=== PATIENT | male | born 1985 | race Caucasian/White ===

== ENCOUNTER 2018-05-11 19:30 | Emergency (ER) | payer SELFPAY ==
[2018-05-11] MEDS ORDERED: NACL 0.9% 1000 ML 1,000 ML IV ONE ×2 (19:57→21:05)
[2018-05-11] MEDS ORDERED: ZOFRAN ONE (19:58)
[2018-05-11] MEDS ORDERED: ZOFRAN IV ONE ×2 (20:07→21:05)
[2018-05-11 20:17] LABS: Basophils % (Auto) 0.4 % (0.0-1.8); Eosinophils # (Auto) 0.1 K/mm3 (0.0-0.4); Eosinophils % (Auto) 1.2 % (0.0-4.3); Hematocrit 41.5 % (35.5-45.6); Hemoglobin 13.8 gm/dl (11.8-15.2); Lymphocytes # (Auto) 2.1 K/mm3 (1.2-5.4); Lymphocytes % (Auto) 19.1 % (13.4-35.0); Mean Corpuscular HGB Conc 33 % (32-34); Mean Corpuscular Hemoglobin 30 pg (28-32); Mean Corpuscular Volume 89 fl (84-94); Monocytes # (Auto) 1.2 K/mm3 (0.0-0.8); Monocytes % (Auto) 10.9 % (0.0-7.3); Platelet Count 278 K/mm3 (140-440); Red Blood Count 4.64 M/mm3 (3.65-5.03); Red Cell Distribution Width 12.6 % (13.2-15.2)
--- NOTE | 2018-05-11 20:24 | Emergency Department Report ---
ED N/V/D HPI - General Chief complaint: Abdominal Pain Stated complaint: POSS FOOD POISON/ABD PAIN Time Seen by Provider: 05/11/18 20:23 Source: patient Mode of arrival: Stretcher Limitations: No Limitations - History of Present Illness Initial comments: Previously healthy 32-year-old man with 2-3 day history of repeated bouts of nausea and vomiting, but fairly little diarrhea, primary concern that he may have had food poisoning, reporting that he may have a bed care several days ago. He is concerned because 3 days ago he ate some carrots that looked moldy, had green discoloration on them, patent anyway, and shortly after began having abdominal discomfort, with bouts of nausea and vomiting, which have persisted over the succeeding 3 days. He's not had much in the way of any diarrhea. No fever chills or diaphoresis. He is in good general health, and has no prior history of gastrointestinal problems. Patient reports discomfort is quite significant, currently 10 out of 10, felt primarily in the epigastrium, as well as in the right upper quadrant, with some discomfort in the right upper back as well. He's not had much in the way of gas , belching, or flatus. Patient had no hematemesis, no melena, no cough or congestion, no chest pain. There is an appointment in the coming week with a primary care physician, for evaluation of elevated blood pressure, but has never had medication for this before. - Related Data Previous Rx's Medication Instructions Recorded Last Taken Type Bacitracin Zinc Oint 1 applicatio TP BID #1 tube 08/03/16 Unknown Rx Cephalexin [Keflex] 500 mg PO Q12HR #9 cap 08/03/16 Unknown Rx HYDROcodone/APAP 10-325 [[place] 1 each PO Q6HR PRN #20 tablet 05/12/18 Unknown Rx 10/325] Lisinopril [Prinivil] 5 mg PO DAILY #30 tablet 05/12/18 Unknown Rx Omeprazole 20 mg PO DAILY #30 tablet. 05/12/18 Unknown Rx Ondansetron [Zofran ODT TAB] 8 mg PO Q8HR PRN #10 tab.rapdis 05/12/18 Unknown Rx Allergies Allergy/AdvReac Type Severity Reaction Status Date / Time No Known Allergies Allergy Unverified 08/02/16 23:36 ED Review of Systems ROS: Stated complaint: POSS FOOD POISON/ABD PAIN Other details as noted in HPI Comment: All other systems reviewed and negative Constitutional: denies: chills, fever ENT: denies: throat pain Respiratory: no symptoms reported. denies: cough, orthopnea, shortness of breath Cardiovascular: denies: chest pain Endocrine: no symptoms reported Gastrointestinal: as per HPI, abdominal pain, nausea, vomiting. denies: diarrhea, hematemesis, melena, hematochezia Genitourinary: denies: urgency, dysuria Musculoskeletal: denies: back pain, joint swelling, arthralgia Skin: denies: rash, lesions Neurological: denies: headache, weakness, paresthesias Psychiatric: denies: anxiety, depression Hematological/Lymphatic: denies: easy bleeding, easy bruising ED Past Medical Hx - Past Medical History Previous Medical History?: No - Surgical History Past Surgical History?: No - Social History Smoking Status: Never Smoker Substance Use Type: None - Medications Home Medications: Home Medications Medication Instructions Recorded Confirmed Last Taken Type Bacitracin Zinc Oint 1 applicatio TP BID #1 tube 08/03/16 Unknown Rx Cephalexin [Keflex] 500 mg PO Q12HR #9 cap 08/03/16 Unknown Rx HYDROcodone/APAP 10-325 [[place] 1 each PO Q6HR PRN #20 tablet 05/12/18 Unknown Rx 10/325] Lisinopril [Prinivil] 5 mg PO DAILY #30 tablet 05/12/18 Unknown Rx Omeprazole 20 mg PO DAILY #30 tablet.dr 05/12/18 Unknown Rx Ondansetron [Zofran ODT TAB] 8 mg PO Q8HR PRN #10 tab.rapdis 05/12/18 Unknown Rx ED Physical Exam - General Limitations: No Limitations General appearance: alert, in distress (moderate abdominal discomfort, but resting fairly comfortably at time of examination) - Head Head exam: Present: atraumatic, normocephalic - Eye Eye exam: Present: PERRL, EOMI. Absent: scleral icterus, conjunctival injection - ENT ENT exam: Present: normal exam - Neck Neck exam: Present: normal inspection, full ROM. Absent: tenderness - Respiratory Respiratory exam: Present: normal lung sounds bilaterally - Cardiovascular Cardiovascular Exam: Present: regular rate, normal heart sounds. Absent: systolic murmur, diastolic murmur - GI/Abdominal GI/Abdominal exam: Present: tenderness (predominantly epigastrium, also right upper quadrant, no definite rebound), guarding (mild, predominantly right upper quadrant), normal bowel sounds. Absent: mass - Rectal Rectal exam: Present: deferred - Extremities Exam Extremities exam: Present: normal inspection, full ROM. Absent: tenderness - Back Exam Back exam: Present: normal inspection. Absent: tenderness, CVA tenderness (R), CVA tenderness (L), muscle spasm, vertebral tenderness - Neurological Exam Neurological exam: Present: alert, oriented X3, CN II-XII intact. Absent: motor sensory deficit - Psychiatric Psychiatric exam: Present: normal affect, normal mood - Skin Skin exam: Present: warm, dry, intact. Absent: rash, petechiae, abrasion ED Course Vital Signs 05/11/18 05/11/18 05/11/18 19:38 19:45 19:50 Temperature 37.1 C Pulse Rate 74 97 H 91 H Respiratory 22 17 17 Rate Blood Pressure 172/107 172/107 O2 Sat by Pulse 100 100 99 Oximetry 05/11/18 05/11/18 05/11/18 20:00 20:15 20:30 Temperature Pulse Rate 72 63 69 Respiratory 25 H 28 H 19 Rate Blood Pressure 163/121 188/122 194/123 O2 Sat by Pulse 100 100 100 Oximetry 05/11/18 05/11/18 05/11/18 20:45 21:01 22:25 Temperature Pulse Rate 60 65 Respiratory 27 H 16 Rate Blood Pressure 184/100 150/79 184/100 O2 Sat by Pulse 100 100 96 Oximetry 05/11/18 05/11/18 05/11/18 22:30 22:45 23:00 Temperature Pulse Rate 95 H 96 H 98 H Respiratory 15 22 23 Rate Blood Pressure 169/107 162/107 178/110 O2 Sat by Pulse 95 96 98 Oximetry 05/11/18 05/11/18 05/11/18 23:15 23:30 23:45 Temperature Pulse Rate 100 H 91 H 77 Respiratory 21 22 15 Rate Blood Pressure 165/112 171/108 179/122 O2 Sat by Pulse 97 98 99 Oximetry - Reevaluation(s) Reevaluation #1: 05/12/18 00:03 Patient medicated for continuing discomfort, but still resting fairly comfortably after receiving second liter of IV fluids, and second round of morphine. ED Medical Decision Making - Lab Data Result diagrams: 05/11/18 20:02 05/11/18 20:02 - Radiology Data Radiology results: report reviewed (ultrasound right upper quadrant, shows gallstones, with mild cholecystitis, mild pericolic fluid, common bile duct 9.8 mm.) - Medical Decision Making Patient has symptoms of epigastric and right upper quadrant discomfort persisted for 3 days, with repeated nausea and vomiting, but is tolerating moderate amounts of fluids in small amounts on a regular basis. Findings are most suggestive of acute biliary colic, and right upper quadrant limited ultrasound examination of abdomen shows gallstones but only mild acute inflammation, mild pericolic fluid, CBD 9.8 mm. Patient's lab work is stable, lipase is normal, and he is stable for discharge home, but will need neurosurgical evaluation, and probably HIDA scan to assess her biliary function. He will be given continued release from work for the next several days, so that he can treat nausea and pain, advised to follow bland diet. Also, patient has had persistently elevated blood pressure, and despite treatment for pain, blood pressure at time of discharge still remains elevated at 153/104, and I believe patient has in addition, essential hypertension, and will write him an initial prescription of lisinopril, 5 mg daily, with recommendation to take blood pressure routinely at home, and keep a record of the trends in a notebook. He should follow with the primary care physician in one or 2 weeks, review records of blood pressure trends, and discuss adequacy of treatment. - Differential Diagnosis acute gastroenteritis, gastritis, cholecystitis Critical Care Time: No Critical care attestation.: If time is entered above; I have spent that time in minutes in the direct care of this critically ill patient, excluding procedure time. ED Disposition Clinical Impression: Biliary colic, Dehydration Nausea and vomiting Qualifiers: Vomiting type: unspecified Vomiting Intractability: non-intractable Qualified Code(s): R11.2 - Nausea with vomiting, unspecified Disposition: -01 TO HOME OR SELFCARE Is pt being admited?: No Does the pt Need Aspirin: No Condition: Stable Instructions: Dehydration (ED), Biliary Colic (ED) Additional Instructions: Follow with general surgeon in the next week or so, to have further evaluation for gallbladder disease, to assess how you're improving, and discussion about any need for removal of gallbladder. Prescriptions: HYDROcodone/APAP 10-325 [[place] 10/325] 1 each PO Q6HR PRN #20 tablet PRN Reason: Pain Lisinopril [Prinivil] 5 mg PO DAILY #30 tablet Omeprazole 20 mg PO DAILY #30 tablet. Ondansetron [Zofran ODT TAB] 8 mg PO Q8HR PRN #10 tab.rapdis PRN Reason: Nausea Referrals: PRIMARY CARE,MD [Primary Care Provider] - 3-5 Days HONORIO COLMENARES, LONG TERM ACUTE CARE REGISTERED NURSE [Advanced Practice Nurse] - 3-5 Days Forms: Work/School Release Form(ED) Time of Disposition: 00:10
[2018-05-11 20:33] LABS: Alanine Aminotransferase 66 units/L (7-56); Albumin 4.5 g/dL (3.9-5); BUN/Creatinine Ratio 14; Blood Urea Nitrogen 14 mg/dL (9-20); Calcium 9.8 mg/dL (8.4-10.2); Hemolysis Index 13; Lipase 13 units/L (13-60)
[2018-05-11 20:53] LABS: Bilirubin,Urine NEG (Negative); Blood,Urine NEG (Negative); Color,Urine Yellow (Yellow); Mucus,Urine FEW /HPF; Protein,Urine <15 mg/dL mg/dL (Negative); Urobilinogen,Urine < 2.0 mg/dL (<2.0); WBC,Urine < 1.0 /HPF (0.0-6.0)
[2018-05-11] MEDS ORDERED: MORPHINE IV ONE (21:05)
--- NOTE | 2018-05-11 23:14 | XRay Report ---
FINAL REPORT PROCEDURE: XR ABD SERIES W CXR 1V TECHNIQUE: Abdominal series complete, including supine and upright AP views of the abdomen and frontal chest. HISTORY: Abdominal pain, right upper quadrant. Nausea/vomiting 3 days. COMPARISON: No prior studies are available for comparison. FINDINGS: Heart: Normal. Mediastinum/Vessels: Normal. Lungs/Pleural space: Normal. Bowel gas pattern: Mildly reactive nonobstructive bowel gas pattern. Air in the rectum. Masses or calcifications: Pelvic phleboliths. Bony structures: No acute osseous abnormality. Other: No free intraperitoneal air. IMPRESSION: No radiographic evidence of acute cardiopulmonary disease. Mildly reactive nonobstructive bowel gas pattern.
--- NOTE | 2018-05-11 23:52 | Ultrasound Report ---
FINAL REPORT PROCEDURE: US ABDOMEN LIMITED TECHNIQUE: Real-time sonography was performed of the gallbladder with image documentation. CPT 79165 HISTORY: RUQ pain, vomiting, 3 days, no prior hx COMPARISON: No prior studies are available for comparison. FINDINGS: There are multiple stones identified within the gallbladder lumen. The gallbladder wall thickness is 3 millimeters. Common bile duct is dilated at 9.3 millimeters. There is pain during examination. The portion of the liver imaged is normal. The portion of the right kidney imaged is normal. The pancreas is not well seen on this study. There is slight fluid around the gallbladder which may represent pericholecystic fluid.. IMPRESSION: Cholelithiasis with some signs of inflammation and acute cholecystitis. The common bile duct is dilated measuring 9.3 millimeters. There is minimal pericholecystic fluid.
[2018-05-12] MEDS ORDERED: MORPHINE IV ONE (00:11)
[2018-05-12] MEDS ORDERED: ZOFRAN IV ONE (00:11)
[2018-05-12 01:42] VITALS: BP 169/109
== END 2018-05-12 01:43 | disposition home or self-care (01) ==
LOC: ED 19:30
DX: K80.50 Calculus of bile duct without cholangitis or cholecystitis without obstruction (principal); E86.0 Dehydration
CPT/HCPCS: 36415; 74022; 76705; 80053; 81001; 83690; 85025; 96361; 96374; 96375; 96376; 99285; J2270; J2405; J7030

== ENCOUNTER 2019-03-28 10:57 | Emergency (ER) | payer SELFPAY ==
[2019-03-28] MEDS ORDERED: ZOFRAN IV ONE (11:20)
[2019-03-28] MEDS ORDERED: NACL 0.9% 1000 ML 1,000 ML IV ONE (11:22)
[2019-03-28 11:42] LABS: Basophils # (Auto) 0.1 K/mm3 (0.0-0.1); Basophils % (Auto) 0.5 % (0.0-1.8); Eosinophils % (Auto) 0.2 % (0.0-4.3); Hematocrit 38.3 % (35.5-45.6); Hemoglobin 12.8 gm/dl (11.8-15.2); Lymphocytes # (Auto) 1.6 K/mm3 (1.2-5.4); Lymphocytes % (Auto) 15.1 % (13.4-35.0); Mean Corpuscular HGB Conc 34 % (32-34); Mean Corpuscular Volume 92 fl (84-94); Monocytes % (Auto) 9.2 % (0.0-7.3); Platelet Count 287 K/mm3 (140-440); Red Blood Count 4.17 M/mm3 (3.65-5.03); Red Cell Distribution Width 13.6 % (13.2-15.2)
[2019-03-28 11:51] LABS: Alanine Aminotransferase 12 units/L (7-56); Albumin 4.7 g/dL (3.9-5); BUN/Creatinine Ratio 10; Blood Urea Nitrogen 12 mg/dL (9-20); Calcium 9.5 mg/dL (8.4-10.2); Hemolysis Index 45
[2019-03-28] MEDS ORDERED: BENADRYL IV ONE (12:19)
[2019-03-28] MEDS ORDERED: MORPHINE IV ONE ×2 (12:19→14:47)
[2019-03-28] MEDS ORDERED: REGLAN IV ONE (12:20)
[2019-03-28 12:32] VITALS: BP 183/101
[2019-03-28 12:44] LABS: Bilirubin,Urine NEG (Negative); Blood,Urine NEG (Negative); Color,Urine Yellow (Yellow); Protein,Urine <15 mg/dL mg/dL (Negative); Urobilinogen,Urine < 2.0 mg/dL (<2.0); WBC,Urine < 1.0 /HPF (0.0-6.0)
--- NOTE | 2019-03-28 13:06 | Emergency Department Report ---
ED General Adult HPI - General Chief complaint: Abdominal Pain Stated complaint: CHEST PAIN Time Seen by Provider: 03/28/19 12:01 Source: EMS Mode of arrival: Ambulatory Limitations: No Limitations - History of Present Illness Initial comments: The patient presents to the ED with a Chief Complaint of abdominal pain and nausea/vomiting. Patient states the symptoms started last night and has not resolved. Patient has chest pain, some spelled, or headache. -: Sudden Severity scale (0 -10): 10 Quality: aching Consistency: constant Improves with: none Worsens with: none Associated Symptoms: nausea/vomiting Treatments Prior to Arrival: none - Related Data Previous Rx's Medication Instructions Recorded Last Taken Type Bacitracin Zinc Oint 1 applicatio TP BID #1 tube 08/03/16 Unknown Rx cephALEXin [Keflex] 500 mg PO Q12HR #9 cap 08/03/16 Unknown Rx HYDROcodone/APAP 10-325 [[place] 1 each PO Q6HR PRN #20 tablet 05/12/18 Unknown Rx 10/325] Lisinopril [Prinivil] 5 mg PO DAILY #30 tablet 05/12/18 Unknown Rx Omeprazole 20 mg PO DAILY #30 tablet. 05/12/18 Unknown Rx Ondansetron [Zofran ODT TAB] 8 mg PO Q8HR PRN #10 tab.rapdis 05/12/18 Unknown Rx Ondansetron [Zofran Odt] 4 mg PO Q4HR PRN #20 tab.rapdis 03/28/19 Unknown Rx Promethazine [Phenergan TAB] 25 mg PO Q6HR PRN #20 tab 03/28/19 Unknown Rx traMADol [Ultram] 50 mg PO Q6HR PRN #15 tablet 03/28/19 Unknown Rx Allergies Allergy/AdvReac Type Severity Reaction Status Date / Time No Known Allergies Allergy Unverified 08/02/16 23:36 ED Review of Systems ROS: Stated complaint: CHEST PAIN Other details as noted in HPI Comment: All other systems reviewed and negative Constitutional: denies: chills, fever Eyes: denies: eye pain, eye discharge, vision change ENT: denies: ear pain, throat pain Respiratory: denies: cough, shortness of breath, wheezing Cardiovascular: denies: chest pain, palpitations Endocrine: no symptoms reported Gastrointestinal: abdominal pain, nausea, vomiting. denies: diarrhea Genitourinary: denies: urgency, dysuria Musculoskeletal: denies: back pain, joint swelling, arthralgia Skin: denies: rash, lesions Neurological: denies: headache, weakness, paresthesias Psychiatric: denies: anxiety, depression Hematological/Lymphatic: denies: easy bleeding, easy bruising ED Past Medical Hx - Past Medical History Previous Medical History?: Yes Hx Hypertension: Yes Hx CVA: No Hx Heart Attack/AMI: No Hx Congestive Heart Failure: No Hx Diabetes: No Hx Deep Vein Thrombosis: No Hx Pulmonary Embolism: No Hx GERD: No Hx Liver Disease: No Hx Renal Disease: No Hx of Cancer: No Hx Sickle Cell Disease: No Hx Arthritis: No Hx Headaches / Migraines: No Hx Seizures: No Hx Kidney Stones: No Hx Psychiatric Treatment: Yes (cutter) Hx Asthma: No Hx COPD: No Hx Tuberculosis: No Hx Dementia: No Hx HIV: No Additional medical history: pt was informed in the past he needed his galdbladder removed - Surgical History Past Surgical History?: No Hx Coronary Stent: No Hx Open Heart Surgery: No Hx Pacemaker: No Hx Internal Defibrillator: No Hx Cholecystectomy: No Hx Appendectomy: No Hx Breast Surgery: No - Social History Smoking Status: Former Smoker Substance Use Type: Alcohol - Medications Home Medications: Home Medications Medication Instructions Recorded Confirmed Last Taken Type Bacitracin Zinc Oint 1 applicatio TP BID #1 tube 08/03/16 Unknown Rx cephALEXin [Keflex] 500 mg PO Q12HR #9 cap 08/03/16 Unknown Rx HYDROcodone/APAP 10-325 [[place] 1 each PO Q6HR PRN #20 tablet 05/12/18 Unknown Rx 10/325] Lisinopril [Prinivil] 5 mg PO DAILY #30 tablet 05/12/18 Unknown Rx Omeprazole 20 mg PO DAILY #30 tablet. 05/12/18 Unknown Rx Ondansetron [Zofran ODT TAB] 8 mg PO Q8HR PRN #10 tab.rapdis 05/12/18 Unknown Rx Ondansetron [Zofran Odt] 4 mg PO Q4HR PRN #20 tab.rapdis 03/28/19 Unknown Rx Promethazine [Phenergan TAB] 25 mg PO Q6HR PRN #20 tab 03/28/19 Unknown Rx traMADol [Ultram] 50 mg PO Q6HR PRN #15 tablet 03/28/19 Unknown Rx ED Physical Exam - General Limitations: No Limitations General appearance: alert, in no apparent distress - Head Head exam: Present: atraumatic, normocephalic - Eye Eye exam: Present: normal appearance, PERRL - ENT ENT exam: Present: mucous membranes dry - Neck Neck exam: Present: normal inspection - Respiratory Respiratory exam: Present: normal lung sounds bilaterally. Absent: respiratory distress - Cardiovascular Cardiovascular Exam: Present: regular rate, normal rhythm. Absent: systolic murmur, diastolic murmur, rubs, gallop - GI/Abdominal GI/Abdominal exam: Present: soft, normal bowel sounds. Absent: distended, tenderness - Rectal Rectal exam: Present: deferred - Extremities Exam Extremities exam: Present: normal inspection - Back Exam Back exam: Present: normal inspection - Neurological Exam Neurological exam: Present: alert, oriented X3, CN II-XII intact. Absent: motor sensory deficit - Psychiatric Psychiatric exam: Present: normal affect, normal mood - Skin Skin exam: Present: warm, dry, intact, normal color. Absent: rash ED Course Vital Signs 03/28/19 03/28/19 03/28/19 11:10 12:30 12:31 Temperature 98.6 F Pulse Rate 60 62 Respiratory 12 18 19 Rate Blood Pressure 168/105 Blood Pressure 168/105 183/101 [Right] O2 Sat by Pulse 99 98 Oximetry ED Medical Decision Making - Lab Data Result diagrams: 03/28/19 11:10 03/28/19 11:10 Lab Results 03/28/19 03/28/19 03/28/19 Range/Units 11:10 11:10 11:10 WBC 10.9 (4.5-11.0) K/mm3 RBC 4.17 (3.65-5.03) M/mm3 Hgb 12.8 (11.8-15.2) gm/dl Hct 38.3 (35.5-45.6) % MCV 92 (84-94) fl MCH 31 (28-32) pg MCHC 34 (32-34) % RDW 13.6 (13.2-15.2) % Plt Count 287 (140-440) K/mm3 Lymph % (Auto) 15.1 (13.4-35.0) % [place] % (Auto) 9.2 H (0.0-7.3) % Eos % (Auto) 0.2 (0.0-4.3) % Baso % (Auto) 0.5 (0.0-1.8) % Lymph # 1.6 (1.2-5.4) K/mm3 [place] # 1.0 H (0.0-0.8) K/mm3 Eos # 0.0 (0.0-0.4) K/mm3 Baso # 0.1 (0.0-0.1) K/mm3 Seg Neutrophils % 75.0 H (40.0-70.0) % Seg Neutrophils # 8.1 H (1.8-7.7) K/mm3 Sodium 142 (137-145) mmol/L Potassium 4.1 (3.6-5.0) mmol/L Chloride 102.6 (98-107) mmol/L Carbon Dioxide 23 (22-30) mmol/L Anion Gap 21 mmol/L BUN 12 (9-20) mg/dL Creatinine 1.2 (0.8-1.5) mg/dL Estimated GFR > 60 ml/min BUN/Creatinine Ratio 10 % Glucose 102 H (75-100) mg/dL Calcium 9.5 (8.4-10.2) mg/dL Total Bilirubin 0.30 (0.1-1.2) mg/dL AST 19 (5-40) units/L ALT 12 (7-56) units/L Alkaline Phosphatase 87 (35-129) units/L Troponin T < 0.010 (0.00-0.029) ng/mL Total Protein 7.4 (6.3-8.2) g/dL Albumin 4.7 (3.9-5) g/dL Albumin/Globulin Ratio 1.7 % Lipase 34 (13-60) units/L Urine Color (Yellow) Urine Turbidity (Clear) Urine pH (5.0-7.0) Ur Specific [place] (1.003-1.030) Urine Protein (Negative) mg/dL Urine Glucose (UA) (Negative) mg/dL Urine Ketones (Negative) mg/dL Urine Blood (Negative) Urine Nitrite (Negative) Urine Bilirubin (Negative) Urine Urobilinogen (<2.0) mg/dL Ur Leukocyte Esterase (Negative) Urine WBC (Auto) (0.0-6.0) /HPF Urine RBC (Auto) (0.0-6.0) /HPF U Epithel Cells (Auto) (0-13.0) /HPF // Range/Units Unknown WBC (4.5-11.0) K/mm3 RBC (3.65-5.03) M/mm3 Hgb (11.8-15.2) gm/dl Hct (35.5-45.6) % MCV (84-94) fl MCH (28-32) pg MCHC (32-34) % RDW (13.2-15.2) % Plt Count (140-440) K/mm3 Lymph % (Auto) (13.4-35.0) % [place] % (Auto) (0.0-7.3) % Eos % (Auto) (0.0-4.3) % Baso % (Auto) (0.0-1.8) % Lymph # (1.2-5.4) K/mm3 [place] # (0.0-0.8) K/mm3 Eos # (0.0-0.4) K/mm3 Baso # (0.0-0.1) K/mm3 Seg Neutrophils % (40.0-70.0) % Seg Neutrophils # (1.8-7.7) K/mm3 Sodium (137-145) mmol/L Potassium (3.6-5.0) mmol/L Chloride (98-107) mmol/L Carbon Dioxide (22-30) mmol/L Anion Gap mmol/L BUN (9-20) mg/dL Creatinine (0.8-1.5) mg/dL Estimated GFR ml/min BUN/Creatinine Ratio % Glucose (75-100) mg/dL Calcium (8.4-10.2) mg/dL Total Bilirubin (0.1-1.2) mg/dL AST (5-40) units/L ALT (7-56) units/L Alkaline Phosphatase (35-129) units/L Troponin T (0.00-0.029) ng/mL Total Protein (6.3-8.2) g/dL Albumin (3.9-5) g/dL Albumin/Globulin Ratio % Lipase (13-60) units/L Urine Color Yellow (Yellow) Urine Turbidity Clear (Clear) Urine pH 8.0 H (5.0-7.0) Ur Specific [place] 1.015 (1.003-1.030) Urine Protein <15 mg/dl (Negative) mg/dL Urine Glucose (UA) Neg (Negative) mg/dL Urine Ketones Neg (Negative) mg/dL Urine Blood Neg (Negative) Urine Nitrite Neg (Negative) Urine Bilirubin Neg (Negative) Urine Urobilinogen < 2.0 (<2.0) mg/dL Ur Leukocyte Esterase Neg (Negative) Urine WBC (Auto) < 1.0 (0.0-6.0) /HPF Urine RBC (Auto) 2.0 (0.0-6.0) /HPF U Epithel Cells (Auto) < 1.0 (0-13.0) /HPF - Radiology Data Radiology results: report reviewed - Medical Decision Making Discussed results with patient including CT findings Critical care attestation.: If time is entered above; I have spent that time in minutes in the direct care of this critically ill patient, excluding procedure time. ED Disposition Clinical Impression: Abdominal pain, Nausea & vomiting, Diverticulosis Disposition: TO HOME OR SELFCARE Is pt being admited?: No Does the pt Need Aspirin: No Condition: Stable Instructions: Acute Abdominal Pain (ED), Diverticulosis Diet (ED), Diverticulosis (ED), Acute Nausea and Vomiting (ED) Additional Instructions: return if worse Referrals: APRYL DOUGLAS MD [Primary Care Provider] - 3-5 Days
--- NOTE | 2019-03-28 14:51 | Cat Scan Report ---
CT scan of the abdomen and pelvis without IV contrast limits the history: Abdominal pain with nausea and vomiting. Findings a normal lung bases. No pleural pericardial effusion. Small sliding hiatal hernia. Normal gallbladder. Normal liver spleen and pancreas. Normal adrenals and kidney parenchyma and urinary bladder. No free intraperitoneal fluid or air. Normal appendix. No evidence of diverticulitis. Diverticulosis colon. Impression: Diverticulosis colon with stool in colon.
== END 2019-03-28 15:30 | disposition home or self-care (01) ==
LOC: ED 10:57
DX: K57.90 Diverticulosis of intestine, part unspecified, without perforation or abscess without bleeding (principal)
CPT/HCPCS: 36415; 74176; 80053; 81001; 83690; 84484; 85025; 96361; 96365; 96375; 96376; 99284; J1200; J2270; J2405; J2765; J7030

== ENCOUNTER 2019-07-26 23:15 | Inpatient (IN) | payer OTHER, SELFPAY ==
[2019-07-26] MEDS ORDERED: SODIUM CHLORIDE 0.9% 1000 ML 1,000 ML IV ONE (23:22)
[2019-07-26] MEDS ORDERED: ONDANSETRON 4 MG/2 ML INJ IV ONE (23:22)
[2019-07-26] MEDS ORDERED: MORPHINE 4 MG/1 ML INJ IV ONE (23:23)
[2019-07-26] MEDS ORDERED: HYDROmorphone 1 MG/1 ML INJ IV ONE (23:24)
[2019-07-26 23:52] LABS: Basophils % (Auto) 0.2 % (0.0-1.8); Hematocrit 41.4 % (35.5-45.6); Hemoglobin 13.7 gm/dl (11.8-15.2); Lymphocytes % (Auto) 8.4 % (13.4-35.0); Mean Corpuscular HGB Conc 33 % (32-34); Mean Corpuscular Volume 90 fl (84-94); Monocytes # (Auto) 1.2 K/mm3 (0.0-0.8); Monocytes % (Auto) 9.8 % (0.0-7.3); Platelet Count 230 K/mm3 (140-440); Red Blood Count 4.59 M/mm3 (3.65-5.03); Red Cell Distribution Width 14.3 % (13.2-15.2)
[2019-07-27 00:39] LABS: Alanine Aminotransferase 143 units/L (7-56); Albumin 4.5 g/dL (3.9-5); BUN/Creatinine Ratio 15; Bilirubin,Direct 0.7 mg/dL (0-0.2); Blood Urea Nitrogen 17 mg/dL (9-20); Hemolysis Index 5
[2019-07-27] MEDS ORDERED: HYDROmorphone 1 MG/1 ML INJ IV ONE (00:57)
--- NOTE | 2019-07-27 01:04 | Emergency Department Report ---
ED Abdominal Pain HPI - General Chief Complaint: Abdominal Pain Stated Complaint: ABD PAIN Time Seen by Provider: 07/26/19 23:22 Source: patient, family, EMS Mode of arrival: Ambulatory Limitations: Other - History of Present Illness Initial Comments: Mr. Martin is a 33-year-old male with history of alcohol abuse who presents with severe central pain radiating to the back. He was then his normal state of health until sudden onset of severe sharp pain which began around 9:00 her mother noted that he ate a burrito and [place] food. Positive nausea. No vomiting. No diarrhea. No fever. Mother states that he is unemployed due to his alcohol abuse. She moved from [place] to [place] in order to care for him. He was previously homeless. MD Complaint: abdominal pain -: Sudden, hour(s) (3) Location: diffuse Radiation: back Severity: severe Severity scale (0 -10): 10 Quality: sharp Consistency: constant Improves With: nothing Worsens With: eating Context: other (pain began shortly after eating [place] food) Associated Symptoms: nausea - Related Data Previous Rx's Medication Instructions Recorded Last Taken Type Bacitracin Zinc Oint 1 applicatio TP BID #1 tube 08/03/16 Unknown Rx cephALEXin [Keflex] 500 mg PO Q12HR #9 cap 08/03/16 Unknown Rx HYDROcodone/APAP 10-325 [[place] 1 each PO Q6HR PRN #20 tablet 05/12/18 Unknown Rx 10/325] Lisinopril [Prinivil] 5 mg PO DAILY #30 tablet 05/12/18 Unknown Rx Omeprazole 20 mg PO DAILY #30 tablet. 05/12/18 Unknown Rx Ondansetron [Zofran ODT TAB] 8 mg PO Q8HR PRN #10 tab.cheng 05/12/18 Unknown Rx Ondansetron [Zofran Odt] 4 mg PO Q4HR PRN #20 tab.tomasdis 03/28/19 Unknown Rx Promethazine [Phenergan TAB] 25 mg PO Q6HR PRN #20 tab 03/28/19 Unknown Rx traMADol [Ultram] 50 mg PO Q6HR PRN #15 tablet 03/28/19 Unknown Rx Allergies Allergy/AdvReac Type Severity Reaction Status Date / Time No Known Allergies Allergy Unverified 08/02/16 23:36 ED Review of Systems ROS: Stated complaint: ABD PAIN Other details as noted in HPI Comment: All other systems reviewed and negative Constitutional: denies: fever, malaise ED Past Medical Hx - Past Medical History Previous Medical History?: Yes Hx Hypertension: Yes Hx CVA: No Hx Heart Attack/AMI: No Hx Congestive Heart Failure: No Hx Diabetes: No Hx Deep Vein Thrombosis: No Hx Pulmonary Embolism: No Hx GERD: No Hx Liver Disease: No Hx Renal Disease: No Hx Sickle Cell Disease: No Hx Arthritis: No Hx Headaches / Migraines: No Hx Seizures: No Hx Kidney Stones: No Hx Psychiatric Treatment: Yes (cutter) Hx Asthma: No Hx COPD: No Hx Tuberculosis: No Hx Dementia: No Hx HIV: No Additional medical history: pt was informed in the past he needed his galdbladder removed - Surgical History Past Surgical History?: No Hx Coronary Stent: No Hx Open Heart Surgery: No Hx Pacemaker: No Hx Internal Defibrillator: No Hx Cholecystectomy: No Hx Appendectomy: No Hx Breast Surgery: No - Social History Smoking Status: Current Every Day Smoker Substance Use Type: Alcohol, Marijuana - Medications Home Medications: Home Medications Medication Instructions Recorded Confirmed Last Taken Type Bacitracin Zinc Oint 1 applicatio TP BID #1 tube 08/03/16 Unknown Rx cephALEXin [Keflex] 500 mg PO Q12HR #9 cap 08/03/16 Unknown Rx HYDROcodone/APAP 10-325 [[place] 1 each PO Q6HR PRN #20 tablet 05/12/18 Unknown Rx 10/325] Lisinopril [Prinivil] 5 mg PO DAILY #30 tablet 05/12/18 Unknown Rx Omeprazole 20 mg PO DAILY #30 tablet. 05/12/18 Unknown Rx Ondansetron [Zofran ODT TAB] 8 mg PO Q8HR PRN #10 tab.rapdis 05/12/18 Unknown Rx Ondansetron [Zofran Odt] 4 mg PO Q4HR PRN #20 tab.rapdis 03/28/19 Unknown Rx Promethazine [Phenergan TAB] 25 mg PO Q6HR PRN #20 tab 03/28/19 Unknown Rx traMADol [Ultram] 50 mg PO Q6HR PRN #15 tablet 03/28/19 Unknown Rx ED Physical Exam - General Limitations: Other General appearance: alert, in distress (yelling in severe pain,unable to keep still due to severe pain) - Head Head exam: Present: atraumatic, normocephalic - Eye Eye exam: Present: normal appearance - ENT ENT exam: Present: mucous membranes moist - Neck Neck exam: Present: normal inspection, full ROM - Respiratory Respiratory exam: Present: normal lung sounds bilaterally. Absent: respiratory distress, wheezes - Cardiovascular Cardiovascular Exam: Present: regular rate, normal rhythm, normal heart sounds. Absent: systolic murmur, diastolic murmur, rubs, gallop - GI/Abdominal GI/Abdominal exam: Present: soft, normal bowel sounds. Absent: distended, tenderness, guarding, rebound - Rectal Rectal exam: Present: deferred - Extremities Exam Extremities exam: Present: normal inspection - Back Exam Back exam: Present: normal inspection - Neurological Exam Neurological exam: Present: alert, oriented X3 - Psychiatric Psychiatric exam: Present: normal affect, normal mood - Skin Skin exam: Present: warm, dry, intact, normal color. Absent: rash ED Course Vital Signs 07/27/19 07/27/19 07/27/19 00:03 00:04 00:06 Pulse Rate 59 L 61 62 Respiratory 13 13 13 Rate Blood Pressure 182/102 O2 Sat by Pulse 100 Oximetry 07/27/19 07/27/19 07/27/19 00:08 00:10 00:11 Pulse Rate 68 64 Respiratory 12 19 20 Rate Blood Pressure 182/102 182/102 O2 Sat by Pulse 100 96 99 Oximetry 07/27/19 00:12 Pulse Rate 76 Respiratory 22 Rate Blood Pressure 182/102 O2 Sat by Pulse 100 Oximetry ED Medical Decision Making - Lab Data Result diagrams: 07/26/19 23:34 07/26/19 23:34 Laboratory Results - last 24 hr 07/26/19 07/26/19 23:34 23:34 WBC 11.8 H RBC 4.59 Hgb 13.7 Hct 41.4 MCV 90 MCH 30 MCHC 33 RDW 14.3 Plt Count 230 Lymph % (Auto) 8.4 L Day % (Auto) 9.8 H Eos % (Auto) 0.0 Baso % (Auto) 0.2 Lymph # 1.0 L Day # 1.2 H Eos # 0.0 Baso # 0.0 Seg Neutrophils % 81.6 H Seg Neutrophils # 9.7 H Sodium 143 Potassium 3.4 L Chloride 101.4 Carbon Dioxide 22 Anion Gap 23 BUN 17 Creatinine 1.1 Estimated GFR > 60 BUN/Creatinine Ratio 15 Glucose 183 H Calcium 9.0 Total Bilirubin 1.60 H Direct Bilirubin 0.7 H Indirect Bilirubin 0.9 AST 256 H ALT 143 H Alkaline Phosphatase 107 Total Protein 6.7 Albumin 4.5 Albumin/Globulin Ratio 2.0 - Radiology Data Radiology results: report reviewed CT abdomen and pelvis according to radiology impression revealed acute pancreatitis with peripancreatic fluid - Medical Decision Making Mr. Martin is a 33 yo male with hx alcohol abuse with severe acute abdominal pain radiating to his back. W/U revealed elevated t bili and transaminases. Suspect alcoholic hepatitis. Dx: acute pancreatitis, hepatiis Admitted to hospitalist service for further treatment and evaluation Critical care attestation.: If time is entered above; I have spent that time in minutes in the direct care of this critically ill patient, excluding procedure time. ED Disposition Clinical Impression: Acute pancreatitis, Hepatitis, Alcohol abuse Disposition: OP ADMIT IP TO THIS HOSP Is pt being admited?: Yes Does the pt Need Aspirin: No Condition: Stable
--- NOTE | 2019-07-27 02:00 | Cat Scan Report ---
CT ABDOMEN AND PELVIS WITH CONTRAST INDICATION / CLINICAL INFORMATION: MAIN: severe abdominal pain radiating to back EGNE111/100ML. TECHNIQUE: Axial CT images were obtained through the abdomen and pelvis after 100 mL Omnipaque [address] scans at this location are performed using CT dose reduction for ALARA by means of automated exposure control. COMPARISON: Noncontrast CT dated 03/28/19 FINDINGS: LOWER CHEST: No significant abnormality. LIVER: No significant abnormality. GALLBLADDER: No significant abnormality. BILE DUCTS: No biliary ductal dilation or gallstones. PANCREAS: Pancreas is diffusely edematous. There is moderate peripancreatic inflammation and ill-defi yvonne fluid extending into the anterior and posterior peripancreatic spaces and into the pararenal spac es and right pericolic gutter. SPLEEN: No significant abnormality. ADRENALS: No significant abnormality. RIGHT KIDNEY and URETER: No significant abnormality. LEFT KIDNEY and URETER: No significant abnormality. STOMACH and SMALL BOWEL: No significant abnormality. COLON: Mild sigmoid diverticulosis without inflammation. APPENDIX: No significant abnormality. PERITONEUM: Small amount of free fluid in the abdomen and pelvis. No free air. No fluid collection. LYMPH NODES: No significant adenopathy. AORTA and ARTERIES: No significant abnormality. IVC and VEINS: No significant abnormality. URINARY BLADDER: No significant abnormality. REPRODUCTIVE ORGANS: No significant abnormality. ADDITIONAL FINDINGS: None. SKELETAL SYSTEM: No significant abnormality. IMPRESSION: 1. Acute pancreatitis with extensive peripancreatic ill-defined fluid. No discrete drainable fluid co llection. Signer Name: Bhavana Harris MD Signed: 07/27/2019 1:55 AM Workstation Name: [email or web address]
[2019-07-27] MEDS ORDERED: SODIUM CHLORIDE 0.9% 1000 ML 1,000 ML IV ONE (02:31)
[2019-07-27] MEDS ORDERED: METOCLOPRAMIDE 10 MG/2 ML INJ IV PRN (03:01)
--- NOTE | 2019-07-27 03:13 | History and Physical Report ---
History of Present Illness Date of examination: 07/27/19 History of present illness: 34-year-old man with history of hypertension comes emergency room with complaints of abdominal pain that started today. Pain is in the mid abdomen which she describes as a hurting pain, constant, intensity 7/10, radiating to the back, can't identify exacerbating factor, relieved weight pain medication given in the emergency room. Mom is at bedside state that he set him up left since of nausea vomiting eview Of Systems: Constitutional: no weight loss, fever, chills Ears, eyes, nose, mouth and throat: no nasal congestion, no nasal discharge, no sinus pressure, blurry vision, diplopia Neck: No neck pain or rigidity. Cardiovascular: No palpitations, chest pain Respiratory: No shortness of breath, cough Gastrointestinal: No hematochezia Genitourinary : no dysuria, frequency , hematuria Musculoskeletal: no muscle ache , joint pain Integumentary: no rash, no pruritis Neurological: no parathesias, focal weakness Endocrine: no cold or heat intolerance, no polyuria or polydipsia Hematologic/Lymphatic: no easy bruising, no easy bleeding, no gland swelling Allergic/Immunologic: no urticaria, no angioedema. PAST MEDICAL HISTORY:hypertension PAST SURGICAL HISTORY:None FAMILY HISTORY:hypertension, diabetes SOCIAL HISTORY:+obacco, no drugs, 12 beers a day Medications and Allergies Allergies Allergy/AdvReac Type Severity Reaction Status Date / Time No Known Allergies Allergy Unverified 08/02/16 23:36 Home Medications Medication Instructions Recorded Confirmed Last Taken Type Bacitracin Zinc Oint 1 applicatio TP BID #1 tube 08/03/16 07/29/19 Unknown Rx Lisinopril [Prinivil] 5 mg PO DAILY #30 tablet 05/12/18 07/29/19 Unknown Rx Amoxicillin/Potassium Clav 1 each PO BID #10 tablet 07/30/19 Unknown Rx [Augmentin 875-125 Tablet] Azithromycin [Zithromax Z-BERE] 0 mg PO DAILY #1 pack 07/30/19 Unknown Rx HYDROcodone/APAP 10-325 [[place] 1 each PO Q6HR PRN #20 tablet 07/30/19 Unknown Rx 10-325 mg TAB] Omeprazole 40 mg PO DAILY #30 capsule. 07/30/19 Unknown Rx Ondansetron [Zofran ODT TAB] 8 mg PO Q8HR PRN #20 tab.rapdis 07/30/19 Unknown Rx Polyethylene Glycol 3350 [Miralax 17 gm PO BID PRN #60 powd.pack 07/30/19 Unknown Rx 3350] Active Meds: Active Medications Acetaminophen (Tylenol) 650 mg PO Q4H PRN PRN Reason: Pain MILD(1-3)/Fever >100.5/URBINA Enoxaparin Sodium (Lovenox) 40 mg SUB-Q QDAY ABBI Sodium Chloride (Nacl 0.9% 1000 Ml) 1,000 mls @ 999 mls/hr IV BOLUS ONE Stop: 07/27/19 03:31 Sodium Chloride (Nacl 0.9% 1000 Ml) 1,000 mls @ 150 mls/hr IV DIRECT ABBI Metoclopramide HCl (Reglan) 10 mg IV Q6H PRN PRN Reason: Nausea And Vomiting Morphine Sulfate (Morphine) 2 mg IV Q4H PRN PRN Reason: Pain, Moderate (4-6) Ondansetron HCl (Zofran) 4 mg IV Q4H PRN PRN Reason: Nausea And Vomiting Sodium Chloride (Sodium Chloride Flush Syringe 10 Ml) 10 ml IV BID ABBI Sodium Chloride (Sodium Chloride Flush Syringe 10 Ml) 10 ml IV PRN PRN PRN Reason: LINE FLUSH Exam - Physical Exam Narrative exam: General Apperance: The patient sitting in bed no acute distress HEENT: Normocephalic, atraumatic. Pupils equally round and reactive to light, extraocular movement intact, and no sclericterus or JVD or thyromegaly or nodule. Neck supple, no carotid bruit, mucous membranes moist, no exudate or erythema Heart: S1-S2, regular is rhythm Lungs: Clear to auscultation bilaterally, breathing comfortable Abdomen: Positive bowel sounds, soft, tender in the epigastric area, nondi stended, no organomegaly Extremities: No edema cyanosis clubbing Skin: no rash, nodule, warm and dry Neuro:CN 2 -12 intact, motor/sensory intact, speech is fluent - Constitutional Vitals: Temp Pulse Resp BP Pulse Ox 76 22 182/102 100 07/27/19 00:12 07/27/19 00:12 07/27/19 00:12 07/27/19 00:12 Results - Labs CBC & Chem 7: 07/29/19 08:28 07/29/19 08:28 Labs: Abnormal lab results 07/26/19 07/26/19 Range/Units 23:34 23:34 WBC 11.8 H (4.5-11.0) K/mm3 Lymph % (Auto) 8.4 L (13.4-35.0) % Real % (Auto) 9.8 H (0.0-7.3) % Lymph # 1.0 L (1.2-5.4) K/mm3 Real # 1.2 H (0.0-0.8) K/mm3 Seg Neutrophils % 81.6 H (40.0-70.0) % Seg Neutrophils # 9.7 H (1.8-7.7) K/mm3 Potassium 3.4 L (3.6-5.0) mmol/L Glucose 183 H (75-100) mg/dL Total Bilirubin 1.60 H (0.1-1.2) mg/dL Direct Bilirubin 0.7 H (0-0.2) mg/dL AST 256 H (5-40) units/L ALT 143 H (7-56) units/L Lipase 1090 H (13-60) units/L - Imaging and Cardiology CT scan - abdomen: report reviewed CT scan - pelvis: report reviewed Assessment and Plan Assessment Acute pancreatitis with extensive peripancreatic fluid Attention uncontrolled Alcohol abuse Man Start IV fluid, IV morphine, bowel rest, consult GI Start Lopressor, IV hydralazineas needed for blood pressure control DVT prophylaxis, CIWA protocol, follow lipase
[2019-07-27] MEDS ORDERED: LORazepam 2 MG/ML VIAL IV PRN ×2 (03:14)
[2019-07-27] MEDS ORDERED: hydrALAZINE 20 MG/1 ML INJ IV PRN (03:14)
[2019-07-27] MEDS: METOPROLOL TARTRATE 25 MG TAB PO SCH ×3 (04:15→21:58)
[2019-07-27 04:27] LABS: Basophils % (Auto) 0.1 % (0.0-1.8); Hematocrit 42.1 % (35.5-45.6); Hemoglobin 13.9 gm/dl (11.8-15.2); Lymphocytes # (Auto) 0.7 K/mm3 (1.2-5.4); Lymphocytes % (Auto) 6.9 % (13.4-35.0); Mean Corpuscular HGB Conc 33 % (32-34); Mean Corpuscular Volume 91 fl (84-94); Monocytes # (Auto) 0.9 K/mm3 (0.0-0.8); Monocytes % (Auto) 9.2 % (0.0-7.3); Platelet Count 208 K/mm3 (140-440); Red Blood Count 4.63 M/mm3 (3.65-5.03); Red Cell Distribution Width 14.4 % (13.2-15.2)
[2019-07-27] MEDS: MORPHINE 2 MG/1 ML INJ IV PRN ×2 (04:31→08:50)
[2019-07-27] MEDS: SODIUM CHLORIDE 0.9% 1000 ML 1,000 ML IV SCH ×4 (04:31→21:58)
[2019-07-27 04:39] LABS: BUN/Creatinine Ratio 16; Blood Urea Nitrogen 16 mg/dL (9-20); Calcium 8.9 mg/dL (8.4-10.2); Hemolysis Index 23
[2019-07-27] MEDS: ONDANSETRON 4 MG/2 ML INJ IV PRN ×5 (06:19→23:27)
[2019-07-27] MEDS ORDERED: MORPHINE 2 MG/1 ML INJ IV ONE (07:30)
--- NOTE | 2019-07-27 10:32 | Gastroenterology Consultation ---
History of Present Illness - Reason for Consult Consult date: 07/27/19 pancreatitis Requesting physician: ROBYN YAÑEZ - History of Present Illness This is a 33 yo male with alcohol use admitted overnight for abdominal pain and pancreatitis. Patient reports having epigastric pain radiating to his back and sides starting yesterday associated with nausea/vomiting and chills. He denies any blood in the stool or melena. No family hx of pancreas problems or prior epi sode of pancreatitis. Last alcohol use about 3 days ago. No new medication taken. Medication list reviewed. Past History Past Medical History: hypertension Social history: other (weekly alcohol use) Family history: hypertension Medications and Allergies Allergies Allergy/AdvReac Type Severity Reaction Status Date / Time No Known Allergies Allergy Unverified 08/02/16 23:36 Home Medications Medication Instructions Recorded Confirmed Last Taken Type Bacitracin Zinc Oint 1 applicatio TP BID #1 tube 08/03/16 Unknown Rx cephALEXin [Keflex] 500 mg PO Q12HR #9 cap 08/03/16 Unknown Rx HYDROcodone/APAP 10-325 [[place] 1 each PO Q6HR PRN #20 tablet 05/12/18 Unknown Rx 10/325] Lisinopril [Prinivil] 5 mg PO DAILY #30 tablet 05/12/18 Unknown Rx Omeprazole 20 mg PO DAILY #30 tablet. 05/12/18 Unknown Rx Ondansetron [Zofran ODT TAB] 8 mg PO Q8HR PRN #10 tab.tomasdis 05/12/18 Unknown Rx Ondansetron [Zofran Odt] 4 mg PO Q4HR PRN #20 tab.rapdis 03/28/19 Unknown Rx Promethazine [Phenergan TAB] 25 mg PO Q6HR PRN #20 tab 03/28/19 Unknown Rx traMADol [Ultram] 50 mg PO Q6HR PRN #15 tablet 03/28/19 Unknown Rx Active Meds: Active Medications Acetaminophen (Tylenol) 650 mg PO Q4H PRN PRN Reason: Pain MILD(1-3)/Fever >100.5/URBINA Enoxaparin Sodium (Lovenox) 40 mg SUB-Q QDAY ABBI Hydralazine HCl (Apresoline) 5 mg IV Q6H PRN PRN Reason: Hypertension Hydromorphone HCl (Dilaudid) 1 mg IV Q4H PRN PRN Reason: Pain , Severe (7-10) Sodium Chloride (Nacl 0.9% 1000 Ml) 1,000 mls @ 200 mls/hr IV DIRECT [facility] Last Admin: 07/27/19 04:31 Dose: 150 mls/hr Documented by: Lorazepam (Ativan) 2 mg IV Q1HR PRN PRN Reason: CIWA-Ar 8-15 Lorazepam (Ativan) 4 mg IV Q1HR PRN PRN Reason: CIWA-Ar 16-25 Metoclopramide HCl (Reglan) 10 mg IV Q6H PRN PRN Reason: Nausea And Vomiting Metoprolol Tartrate (Lopressor) 25 mg PO BID [facility] Last Admin: 07/27/19 04:15 Dose: 25 mg Documented by: Ondansetron HCl (Zofran) 4 mg IV Q4H PRN PRN Reason: Nausea And Vomiting Last Admin: 07/27/19 06:19 Dose: 4 mg Documented by: Sodium Chloride (Sodium Chloride Flush Syringe 10 Ml) 10 ml IV BID [facility] Sodium Chloride (Sodium Chloride Flush Syringe 10 Ml) 10 ml IV PRN PRN PRN Reason: LINE FLUSH Last Admin: 07/27/19 06:20 Dose: 10 ml Documented by: Review of Systems - Review of Systems All systems: negative Constitutional: fever, chills, no weight loss, no weight gain Cardiovascular: no chest pain Respiratory: no cough, no shortness of breath Gastrointestinal: abdominal pain, nausea, vomiting, no constipation, no change in bowel habits, no hematemesis Neurological: weakness Exam - Constitutional Vital Signs: Temp Pulse Resp BP Pulse Ox 97.9 F 72 18 171/111 100 07/27/19 00:15 07/27/19 04:15 07/27/19 04:11 07/27/19 04:15 07/27/19 06:09 General appearance: no acute distress - EENT Eyes: EOM intact ENT: hearing intact - Neck Neck: supple - Respiratory Respiratory effort: normal - Cardiovascular Rhythm: regular Heart Sounds: Present: S1 & S2 - Gastrointestinal General gastrointestinal: Present: soft, tender, non-distended - Integumentary Integumentary: Present: clear, warm - Neurologic Neurological: alert and oriented x3 - Labs CBC & Chem 7: 07/27/19 04:03 07/27/19 04:03 Lab Results: Laboratory Results - last 24 hr 07/26/19 07/26/19 07/27/19 23:34 23:34 04:03 WBC 11.8 H 10.0 RBC 4.59 4.63 Hgb 13.7 13.9 Hct 41.4 42.1 MCV 90 91 MCH 30 30 MCHC 33 33 RDW 14.3 14.4 Plt Count 230 208 Lymph % (Auto) 8.4 L 6.9 L [place] % (Auto) 9.8 H 9.2 H Eos % (Auto) 0.0 0.0 Baso % (Auto) 0.2 0.1 Lymph # 1.0 L 0.7 L [place] # 1.2 H 0.9 H Eos # 0.0 0.0 Baso # 0.0 0.0 Seg Neutrophils % 81.6 H 83.8 H Seg Neutrophils # 9.7 H 8.4 H Sodium 143 Potassium 3.4 L Chloride 101.4 Carbon Dioxide 22 Anion Gap 23 BUN 17 Creatinine 1.1 Estimated GFR > 60 BUN/Creatinine Ratio 15 Glucose 183 H Calcium 9.0 Phosphorus Magnesium Total Bilirubin 1.60 H Direct Bilirubin 0.7 H Indirect Bilirubin 0.9 AST 256 H ALT 143 H Alkaline Phosphatase 107 Total Protein 6.7 Albumin 4.5 Albumin/Globulin Ratio 2.0 Lipase 1090 H 07/27/19 04:03 WBC RBC Hgb Hct MCV MCH MCHC RDW Plt Count Lymph % (Auto) [place] % (Auto) Eos % (Auto) Baso % (Auto) Lymph # [place] # Eos # Baso # Seg Neutrophils % Seg Neutrophils # Sodium 144 Potassium 4.6 D Chloride 105.2 Carbon Dioxide 24 Anion Gap 19 BUN 16 Creatinine 1.0 Estimated GFR > 60 BUN/Creatinine Ratio 16 Glucose 138 H Calcium 8.9 Phosphorus 4.60 H Magnesium 2.00 Total Bilirubin Direct Bilirubin Indirect Bilirubin AST ALT Alkaline Phosphatase Total Protein Albumin Albumin/Globulin Ratio Lipase 705 H - Imaging CT Scan: report reviewed Assessment and Plan # Acute pancreatitis: CT findings of acute pancreatitis. - etiology likely alcohol. Although LFTs are elevated but no signs of gallstone or biliary dilation on CT. US done this morning. - Lipase trending down. - wbc trending down to normal. - afebrile. Rec - cont with supportive care with pain control, IVF, and antiemetics prn. - NPO - will repeat CMP today. - will need to consider MRCP if LFTs persistently elevated and findings of gallstones on US. - will follow.
[2019-07-27] MEDS: HYDROmorphone 1 MG/1 ML INJ IV PRN ×4 (10:39→23:28)
[2019-07-27 11:31] LABS: INR 1.12 (0.87-1.13)
[2019-07-27 11:38] LABS: Albumin 3.9 g/dL (3.9-5); Bilirubin,Direct 0.2 mg/dL (0-0.2)
[2019-07-27] MEDS: ENOXAPARIN 40 MG/0.4 ML INJ SUB-Q SCH (11:51)
[2019-07-27 12:06] LABS: Hepatitis B Surface Antigen Non-Reactive (Negative); Hepatitis C Virus Antibody Non-Reactive (NonReactive)
--- NOTE | 2019-07-27 13:54 | Ultrasound Report ---
LIMITED RUQ ABDOMINAL ULTRASOUND INDICATION: pancreatitis, concern for gall stone, abdo pain. COMPARISON: CT abdomen pelvis dated 07/26/2019. FINDINGS: Pancreas: The pancreas is mildly edematous but no focal mass or pseudocyst.. Abdominal Aorta: No significant abnormality. IVC: No significant abnormality. Liver: The liver measures 13.5 cm in length. No significant abnormality. Normal hepatopedal blood fl ow in the main portal vein. Gallbladder: The gallbladder is contracted and contains shadowing gallstones.. Bile ducts: No significant abnormality. Common bile duct measures 11.8 mm. Right kidney: Normal size and contour. There is increased renal echotexture consistent with medical r enal disease. No hydronephrosis.. Free fluid: Small ascites. Additional Findings: None. IMPRESSION: Cholelithiasis. The common bile duct is mildly dilated up to 7.8 mm. No obvious choledocholithiasis. Edematous pancreas consistent with pancreatitis. Mild medical renal disease. Small ascites.. Signer Name: Ghanshyam Patel Jr, MD Signed: 07/27/2019 1:49 PM Workstation Name: [id number]
--- NOTE | 2019-07-27 20:01 | Progress Note ---
Assessment and Plan Assessment and plan: 33-year-old man who admits to alcohol abuse and binge drinking who presents with 2 days of severe abdominal pain. Etoh pancreatitis IVF, pain meds, antiemetics, supportive care Counseled on alcohol cessation Preventative health counseling performed for 17 minutes RUQ sono shows gallstones, no cholecystitis of choledocholithiasis History Interval history: Review of systems Constitutional: No fevers, no malaise, no joint pains CVS: No chest pain, no orthopnea, no pedal edema GI: Patient continues to complain of abdominal pain, anorexia and nausea Respiratory: No shortness of breath, no wheezing, no coughing Hospitalist Physical - Constitutional Vitals: Temp Pulse Resp BP Pulse Ox 99.2 F 95 H 18 169/115 99 07/27/19 19:37 07/27/19 19:37 07/27/19 19:37 07/27/19 19:37 07/27/19 19:37 General appearance: Present: severe distress - EENT Eyes: Present: PERRL ENT: hearing intact - Neck Neck: Present: supple - Respiratory Respiratory effort: normal Respiratory: bilateral: CTA - Cardiovascular Rhythm: regular Heart Sounds: Present: S1 & S2 - Extremities Extremities: no ischemia - Abdominal General gastrointestinal: soft - Integumentary Integumentary: Present: clear, warm - Psychiatric Psychiatric: appropriate mood/affect, intact judgment & insight - Neurologic Neurologic: CNII-XII intact, moves all extremities Results - Labs CBC & Chem 7: 07/27/19 04:03 07/27/19 04:03 Labs: Laboratory Last Values WBC 10.0 K/mm3 (4.5-11.0) 07/27/19 04:03 RBC 4.63 M/mm3 (3.65-5.03) 07/27/19 04:03 Hgb 13.9 gm/dl (11.8-15.2) 07/27/19 04:03 Hct 42.1 % (35.5-45.6) 07/27/19 04:03 MCV 91 fl (84-94) 07/27/19 04:03 MCH 30 pg (28-32) 07/27/19 04:03 MCHC 33 % (32-34) 07/27/19 04:03 RDW 14.4 % (13.2-15.2) 07/27/19 04:03 Plt Count 208 K/mm3 (140-440) 07/27/19 04:03 Lymph % (Auto) 6.9 % (13.4-35.0) L 07/27/19 04:03 [place] % (Auto) 9.2 % (0.0-7.3) H 07/27/19 04:03 Eos % (Auto) 0.0 % (0.0-4.3) 07/27/19 04:03 Baso % (Auto) 0.1 % (0.0-1.8) 07/27/19 04:03 Lymph # 0.7 K/mm3 (1.2-5.4) L 07/27/19 04:03 [place] # 0.9 K/mm3 (0.0-0.8) H 07/27/19 04:03 Eos # 0.0 K/mm3 (0.0-0.4) 07/27/19 04:03 Baso # 0.0 K/mm3 (0.0-0.1) 07/27/19 04:03 Seg Neutrophils % 83.8 % (40.0-70.0) H 07/27/19 04:03 Seg Neutrophils # 8.4 K/mm3 (1.8-7.7) H 07/27/19 04:03 PT 14.1 Sec. (12.2-14.9) 07/27/19 10:51 INR 1.12 (0.87-1.13) 07/27/19 10:51 Sodium 144 mmol/L (137-145) 07/27/19 04:03 Potassium 4.6 mmol/L (3.6-5.0) D 07/27/19 04:03 Chloride 105.2 mmol/L (98-107) 07/27/19 04:03 Carbon Dioxide 24 mmol/L (22-30) 07/27/19 04:03 Anion Gap 19 mmol/L 07/27/19 04:03 BUN 16 mg/dL (9-20) 07/27/19 04:03 Creatinine 1.0 mg/dL (0.8-1.5) 07/27/19 04:03 Estimated GFR > 60 ml/min 07/27/19 04:03 BUN/Creatinine Ratio 16 % 07/27/19 04:03 Glucose 138 mg/dL (75-100) H 07/27/19 04:03 Calcium 8.9 mg/dL (8.4-10.2) 07/27/19 04:03 Phosphorus 4.60 mg/dL (2.5-4.5) H 07/27/19 04:03 Magnesium 2.00 mg/dL (1.7-2.3) 07/27/19 04:03 Total Bilirubin 0.80 mg/dL (0.1-1.2) 07/27/19 10:51 Direct Bilirubin 0.2 mg/dL (0-0.2) 07/27/19 10:51 Indirect Bilirubin 0.6 mg/dL 07/27/19 10:51 AST 87 units/L (5-40) H 07/27/19 10:51 ALT 90 units/L (7-56) H 07/27/19 10:51 Alkaline Phosphatase 86 units/L (35-129) 07/27/19 10:51 Total Protein 6.3 g/dL (6.3-8.2) 07/27/19 10:51 Albumin 3.9 g/dL (3.9-5) 07/27/19 10:51 Albumin/Globulin Ratio 1.6 % 07/27/19 10:51 Lipase 705 units/L (13-60) H 07/27/19 04:03 Hepatitis A IgM Ab Non-reactive (NonReactive) 07/27/19 10:51 Hep Bs Antigen Non-reactive (Negative) 07/27/19 10:51 Hep B Core IgM Ab Non-reactive (NonReactive) 07/27/19 10:51 Hepatitis C Antibody Non-reactive (NonReactive) 07/27/19 10:51 Active Medications - Current Medications Current Medications: Generic Name Dose Route Start Last Admin Trade Name Freq PRN Reason Stop Dose Admin Acetaminophen 650 mg 07/27/19 03:01 Tylenol PO Q4H PRN Pain MILD(1-3)/Fever >100.5/URBINA Enoxaparin Sodium 40 mg 07/27/19 10:00 07/27/19 11:51 Lovenox SUB-Q 40 mg QDAY ABBI Administration Hydralazine HCl 5 mg 07/27/19 03:14 Apresoline IV Q6H PRN Hypertension Hydromorphone HCl 1 mg 07/27/19 10:30 07/27/19 19:38 Dilaudid IV 1 mg Q4H PRN Administration Pain , Severe (7-10) Sodium Chloride 1,000 mls @ 200 mls/hr 07/27/19 04:00 07/27/19 16:31 Nacl 0.9% 1000 Ml IV 200 mls/hr DIRECT ABBI Administration Lorazepam 2 mg 07/27/19 03:14 Ativan IV Q1HR PRN CIWA-Ar 8-15 Lorazepam 4 mg 07/27/19 03:14 Ativan IV Q1HR PRN CIWA-Ar 16-25 Metoclopramide HCl 10 mg 07/27/19 03:01 Reglan IV Q6H PRN Nausea And Vomiting Metoprolol Tartrate 25 mg 07/27/19 03:14 07/27/19 11:51 Lopressor PO 25 mg BID ABBI Administration Ondansetron HCl 4 mg 07/27/19 03:01 07/27/19 19:38 Zofran IV 4 mg Q4H PRN Administration Nausea And Vomiting Sodium Chloride 10 ml 07/27/19 10:00 07/27/19 11:52 Sodium Chloride Flush Syringe 10 Ml IV 10 ml BID ABBI Administration Sodium Chloride 10 ml 07/27/19 03:01 07/27/19 19:38 Sodium Chloride Flush Syringe 10 Ml IV 10 ml PRN PRN Administration LINE FLUSH
[2019-07-28] MEDS: SODIUM CHLORIDE 0.9% 1000 ML 1,000 ML IV SCH ×4 (06:22→20:42)
[2019-07-28] MEDS: ONDANSETRON 4 MG/2 ML INJ IV PRN ×3 (06:22→15:47)
[2019-07-28] MEDS: HYDROmorphone 1 MG/1 ML INJ IV PRN ×4 (06:22→20:51)
[2019-07-28] MEDS: ENOXAPARIN 40 MG/0.4 ML INJ SUB-Q SCH (09:21)
[2019-07-28] MEDS: METOPROLOL TARTRATE 25 MG TAB PO SCH ×2 (09:22→21:00)
[2019-07-28] MEDS ORDERED: HYDROcodone/ACETAMINOPHEN 10-325MG TAB PO PRN (10:37)
--- NOTE | 2019-07-28 10:37 | Progress Note ---
Assessment and Plan Assessment and plan: 33-year-old man who admits to alcohol abuse and binge drinking who presents with 2 days of severe abdominal pain. Etoh pancreatitis IVF, pain meds, antiemetics, supportive care ADAT Counseled on alcohol cessation Preventative health counseling performed for 17 minutes RUQ sono shows gallstones, no cholecystitis of choledocholithiasis History Interval history: Review of systems Constitutional: No fevers, no malaise, no joint pains CVS: No chest pain, no orthopnea, no pedal edema GI: Patient continues to complain of abdominal pain, anorexia and nausea Respiratory: No shortness of breath, no wheezing, no coughing Hospitalist Physical - Physical exam Narrative exam: General appearance: Present: mild distress - EENT Eyes: Present: PERRL ENT: hearing intact - Neck Neck: Present: supple - Respiratory Respiratory effort: normal Respiratory: bilateral: CTA - Cardiovascular Rhythm: regular Heart Sounds: Present: S1 & S2 - Extremities Extremities: no ischemia - Abdominal General gastrointestinal: soft - Integumentary Integumentary: Present: clear, warm - Psychiatric Psychiatric: appropriate mood/affect, intact judgment & insight - Neurologic Neurologic: CNII-XII intact, moves all extremities - Constitutional Vitals: Temp Pulse Resp BP Pulse Ox 99.5 F 96 H 18 165/97 94 07/28/19 05:23 07/28/19 09:22 07/28/19 06:52 07/28/19 09:22 07/28/19 05:23 Results - Labs CBC & Chem 7: 07/27/19 04:03 07/27/19 04:03 Labs: Laboratory Last Values WBC 10.0 K/mm3 (4.5-11.0) 07/27/19 04:03 RBC 4.63 M/mm3 (3.65-5.03) 07/27/19 04:03 Hgb 13.9 gm/dl (11.8-15.2) 07/27/19 04:03 Hct 42.1 % (35.5-45.6) 07/27/19 04:03 MCV 91 fl (84-94) 07/27/19 04:03 MCH 30 pg (28-32) 07/27/19 04:03 MCHC 33 % (32-34) 07/27/19 04:03 RDW 14.4 % (13.2-15.2) 07/27/19 04:03 Plt Count 208 K/mm3 (140-440) 07/27/19 04:03 Lymph % (Auto) 6.9 % (13.4-35.0) L 07/27/19 04:03 [place] % (Auto) 9.2 % (0.0-7.3) H 07/27/19 04:03 Eos % (Auto) 0.0 % (0.0-4.3) 07/27/19 04:03 Baso % (Auto) 0.1 % (0.0-1.8) 07/27/19 04:03 Lymph # 0.7 K/mm3 (1.2-5.4) L 07/27/19 04:03 [place] # 0.9 K/mm3 (0.0-0.8) H 07/27/19 04:03 Eos # 0.0 K/mm3 (0.0-0.4) 07/27/19 04:03 Baso # 0.0 K/mm3 (0.0-0.1) 07/27/19 04:03 Seg Neutrophils % 83.8 % (40.0-70.0) H 07/27/19 04:03 Seg Neutrophils # 8.4 K/mm3 (1.8-7.7) H 07/27/19 04:03 PT 14.1 Sec. (12.2-14.9) 07/27/19 10:51 INR 1.12 (0.87-1.13) 07/27/19 10:51 Sodium 144 mmol/L (137-145) 07/27/19 04:03 Potassium 4.6 mmol/L (3.6-5.0) D 07/27/19 04:03 Chloride 105.2 mmol/L (98-107) 07/27/19 04:03 Carbon Dioxide 24 mmol/L (22-30) 07/27/19 04:03 Anion Gap 19 mmol/L 07/27/19 04:03 BUN 16 mg/dL (9-20) 07/27/19 04:03 Creatinine 1.0 mg/dL (0.8-1.5) 07/27/19 04:03 Estimated GFR > 60 ml/min 07/27/19 04:03 BUN/Creatinine Ratio 16 % 07/27/19 04:03 Glucose 138 mg/dL (75-100) H 07/27/19 04:03 Calcium 8.9 mg/dL (8.4-10.2) 07/27/19 04:03 Phosphorus 4.60 mg/dL (2.5-4.5) H 07/27/19 04:03 Magnesium 2.00 mg/dL (1.7-2.3) 07/27/19 04:03 Total Bilirubin 0.80 mg/dL (0.1-1.2) 07/27/19 10:51 Direct Bilirubin 0.2 mg/dL (0-0.2) 07/27/19 10:51 Indirect Bilirubin 0.6 mg/dL 07/27/19 10:51 AST 87 units/L (5-40) H 07/27/19 10:51 ALT 90 units/L (7-56) H 07/27/19 10:51 Alkaline Phosphatase 86 units/L (35-129) 07/27/19 10:51 Total Protein 6.3 g/dL (6.3-8.2) 07/27/19 10:51 Albumin 3.9 g/dL (3.9-5) 07/27/19 10:51 Albumin/Globulin Ratio 1.6 % 07/27/19 10:51 Lipase 705 units/L (13-60) H 07/27/19 04:03 Hepatitis A IgM Ab Non-reactive (NonReactive) 07/27/19 10:51 Hep Bs Antigen Non-reactive (Negative) 07/27/19 10:51 Hep B Core IgM Ab Non-reactive (NonReactive) 07/27/19 10:51 Hepatitis C Antibody Non-reactive (NonReactive) 07/27/19 10:51 Active Medications - Current Medications Current Medications: Generic Name Dose Route Start Last Admin Trade Name Freq PRN Reason Stop Dose Admin Acetaminophen 650 mg 07/27/19 03:01 Tylenol PO Q4H PRN Pain MILD(1-3)/Fever >100.5/URBINA Enoxaparin Sodium 40 mg 07/27/19 10:00 07/28/19 09:21 Lovenox SUB-Q 40 mg QDAY ABBI Administration Hydralazine HCl 10 mg 07/28/19 10:36 Apresoline IV Q4HR PRN BP >160/100 Hydromorphone HCl 1 mg 07/27/19 10:30 07/28/19 06:22 Dilaudid IV 1 mg Q4H PRN Administration Pain , Severe (7-10) Sodium Chloride 1,000 mls @ 200 mls/hr 07/27/19 04:00 07/28/19 06:22 Nacl 0.9% 1000 Ml IV 200 mls/hr DIRECT ABBI Administration Lorazepam 2 mg 07/27/19 03:14 Ativan IV Q1HR PRN CIWA-Ar 8-15 Lorazepam 4 mg 07/27/19 03:14 Ativan IV Q1HR PRN CIWA-Ar 16-25 Metoclopramide HCl 10 mg 07/27/19 03:01 Reglan IV Q6H PRN Nausea And Vomiting Metoprolol Tartrate 25 mg 07/27/19 03:14 07/28/19 09:22 Lopressor PO 25 mg BID ABBI Administration Ondansetron HCl 4 mg 07/27/19 03:01 07/28/19 06:22 Zofran IV 4 mg Q4H PRN Administration Nausea And Vomiting Sodium Chloride 10 ml 07/27/19 10:00 07/28/19 09:23 Sodium Chloride Flush Syringe 10 Ml IV 10 ml BID ABBI Administration Sodium Chloride 10 ml 07/27/19 03:01 07/27/19 19:38 Sodium Chloride Flush Syringe 10 Ml IV 10 ml PRN PRN Administration LINE FLUSH
--- NOTE | 2019-07-28 13:36 | Gastroenterology Progress Note ---
Assessment and Plan 1. GI: pancreatitis w/ noted gallstones, probable gallstone pancreatitis - lipase improved, symptoms slowly improving - continue clear liquid diet, advance to soft in am - follow labs including CRP - continue MRCP based on progress - if tolerating soft diet in am ok to d/c from GI standpoint - will follow - Subjective Date of service: 07/28/19 Interval history: - reports still w/ some pain but overall improving Objective - Constitutional Vitals: Temp Pulse Resp BP Pulse Ox 99.4 F 94 H 20 162/103 98 07/28/19 12:53 07/28/19 12:53 07/28/19 12:53 07/28/19 12:53 07/28/19 12:53 General appearance: no acute distress - EENT Eyes: PERRL - Respiratory Respiratory: bilateral: CTA - Cardiovascular Rhythm: regular Heart Sounds: Present: S1 & S2 - Gastrointestinal General gastrointestinal: Present: soft, non-tender, non-distended - Labs CBC & Chem 7: 07/27/19 04:03 07/27/19 04:03
[2019-07-28] MEDS: hydrALAZINE 20 MG/1 ML INJ IV PRN ×2 (13:46→17:57)
[2019-07-28] MEDS: POLYETHYLENE GLYCOL 3350 17 GM POWDER PO PRN (13:52)
--- NOTE | 2019-07-28 23:58 | Event Note ---
patient Tachycardic, fever Panculture, start empiric IV Zosyn
[2019-07-29] MEDS: ACETAMINOPHEN 325 MG TAB PO PRN ×2 (00:03→17:56)
[2019-07-29] MEDS: PIPERACIL/TAZOBACTA 4.5/NS 100 4.5 GM/100 ML VIAL IV SCH ×4 (00:33→23:30)
[2019-07-29] MEDS: SODIUM CHLORIDE 0.9% 1000 ML 1,000 ML IV SCH ×5 (02:00→21:49)
[2019-07-29] MEDS: HYDROmorphone 1 MG/1 ML INJ IV PRN ×5 (02:16→21:43)
[2019-07-29 03:47] LABS: Bilirubin,Urine NEG (Negative); Blood,Urine MOD (Negative); Color,Urine Yellow (Yellow); Urobilinogen,Urine < 2.0 mg/dL (<2.0)
[2019-07-29] MEDS: hydrALAZINE 20 MG/1 ML INJ IV PRN ×2 (06:05→12:42)
--- NOTE | 2019-07-29 08:06 | XRay Report ---
CHEST 1 VIEW INDICATION / CLINICAL INFORMATION: fever. History pancreatitis COMPARISON: None available. FINDINGS: SUPPORT DEVICES: None. HEART / MEDIASTINUM: No significant abnormality. LUNGS / PLEURA: Since the CT scan of 07/27/2019, airspace disease with small pleural effusion has deve loped in the left lower lobe. This is suspicious for pneumonia with small parapneumonic effusion. The right lung remains clear. No interstitial pulmonary edema. No pneumothorax. ADDITIONAL FINDINGS: No significant additional findings. IMPRESSION: 1. Left lower lobe pleural-parenchymal disease. Findings are suspicious for pneumonia with small para pneumonic effusion. Radiographic follow-up is recommended. Signer Name: Deonna Syed MD Signed: 07/29/2019 8:02 AM Workstation Name: [id number]
[2019-07-29 08:59] LABS: Alanine Aminotransferase 31 units/L (7-56); Albumin 2.9 g/dL (3.9-5); BUN/Creatinine Ratio 13; Blood Urea Nitrogen 12 mg/dL (9-20); Calcium 7.8 mg/dL (8.4-10.2); Hemolysis Index 13
[2019-07-29 09:13] LABS: Basophils # (Auto) 0.1 K/mm3 (0.0-0.1); Basophils % (Auto) 0.5 % (0.0-1.8); Eosinophils % (Auto) 0.1 % (0.0-4.3); Hematocrit 33.2 % (35.5-45.6); Hemoglobin 11.1 gm/dl (11.8-15.2); Lymphocytes # (Auto) 0.8 K/mm3 (1.2-5.4); Mean Corpuscular HGB Conc 33 % (32-34); Mean Corpuscular Volume 91 fl (84-94); Monocytes # (Auto) 1.8 K/mm3 (0.0-0.8); Monocytes % (Auto) 15.5 % (0.0-7.3); Platelet Count 134 K/mm3 (140-440); Red Blood Count 3.64 M/mm3 (3.65-5.03); Red Cell Distribution Width 14.6 % (13.2-15.2)
--- NOTE | 2019-07-29 10:31 | Progress Note ---
Assessment and Plan Assessment and plan: 33-year-old man who admits to alcohol abuse and binge drinking who presents with 2 days of severe abdominal pain. Fever/Sepsis due to Left lobe PNA cont abx -will consider repeat cxr in 1-2 days Etoh pancreatitis IVF, pain meds, antiemetics, supportive care ADAT Counseled on alcohol cessation Preventative health counseling performed for 17 minutes RUQ sono shows gallstones, no cholecystitis of choledocholithiasis dvt ppx- scds, early ambulation, lovenox History Interval history: Review of systems Constitutional: No fevers, no malaise, no joint pains CVS: No chest pain, no orthopnea, no pedal edema GI: Patient continues to complain of abdominal pain, anorexia and nausea Respiratory: No shortness of breath, no wheezing, no coughing Hospitalist Physical - Physical exam Narrative exam: General appearance: Present: mild distress - EENT Eyes: Present: PERRL ENT: hearing intact - Neck Neck: Present: supple - Respiratory Respiratory effort: normal Respiratory: bilateral: CTA - Cardiovascular Rhythm: regular Heart Sounds: Present: S1 & S2 - Extremities Extremities: no ischemia - Abdominal General gastrointestinal: soft - Integumentary Integumentary: Present: clear, warm - Psychiatric Psychiatric: appropriate mood/affect, intact judgment & insight - Neurologic Neurologic: CNII-XII intact, moves all extremities - Constitutional Vitals: Temp Pulse Resp BP Pulse Ox 99.6 F 103 H 20 158/105 90 07/29/19 05:32 07/29/19 06:05 07/29/19 05:32 07/29/19 06:05 07/29/19 05:32 Results - Labs CBC & Chem 7: 07/29/19 08:28 07/29/19 08:28 Labs: Laboratory Last Values WBC 11.8 K/mm3 (4.5-11.0) H 07/29/19 08:28 RBC 3.64 M/mm3 (3.65-5.03) L 07/29/19 08:28 Hgb 11.1 gm/dl (11.8-15.2) L 07/29/19 08:28 Hct 33.2 % (35.5-45.6) L D 07/29/19 08:28 MCV 91 fl (84-94) 07/29/19 08:28 MCH 30 pg (28-32) 07/29/19 08:28 MCHC 33 % (32-34) 07/29/19 08:28 RDW 14.6 % (13.2-15.2) 07/29/19 08:28 Plt Count 134 K/mm3 (140-440) L 07/29/19 08:28 Lymph % (Auto) 7.0 % (13.4-35.0) L 07/29/19 08:28 [place] % (Auto) 15.5 % (0.0-7.3) H 07/29/19 08:28 Eos % (Auto) 0.1 % (0.0-4.3) 07/29/19 08:28 Baso % (Auto) 0.5 % (0.0-1.8) 07/29/19 08:28 Lymph # 0.8 K/mm3 (1.2-5.4) L 07/29/19 08:28 [place] # 1.8 K/mm3 (0.0-0.8) H 07/29/19 08:28 Eos # 0.0 K/mm3 (0.0-0.4) 07/29/19 08:28 Baso # 0.1 K/mm3 (0.0-0.1) 07/29/19 08:28 Seg Neutrophils % 76.9 % (40.0-70.0) H 07/29/19 08:28 Seg Neutrophils # 9.1 K/mm3 (1.8-7.7) H 07/29/19 08:28 PT 14.1 Sec. (12.2-14.9) 07/27/19 10:51 INR 1.12 (0.87-1.13) 07/27/19 10:51 Sodium 136 mmol/L (137-145) L D 07/29/19 08:28 Potassium 3.6 mmol/L (3.6-5.0) D 07/29/19 08:28 Chloride 101.9 mmol/L (98-107) 07/29/19 08:28 Carbon Dioxide 22 mmol/L (22-30) 07/29/19 08:28 Anion Gap 16 mmol/L 07/29/19 08:28 BUN 12 mg/dL (9-20) 07/29/19 08:28 Creatinine 0.9 mg/dL (0.8-1.5) 07/29/19 08:28 Estimated GFR > 60 ml/min 07/29/19 08:28 BUN/Creatinine Ratio 13 % 07/29/19 08:28 Glucose 97 mg/dL (75-100) 07/29/19 08:28 Calcium 7.8 mg/dL (8.4-10.2) L 07/29/19 08:28 Phosphorus 4.60 mg/dL (2.5-4.5) H 07/27/19 04:03 Magnesium 2.00 mg/dL (1.7-2.3) 07/27/19 04:03 Total Bilirubin 1.00 mg/dL (0.1-1.2) 07/29/19 08:28 Direct Bilirubin 0.2 mg/dL (0-0.2) 07/27/19 10:51 Indirect Bilirubin 0.6 mg/dL 07/27/19 10:51 AST 27 units/L (5-40) 07/29/19 08:28 ALT 31 units/L (7-56) 07/29/19 08:28 Alkaline Phosphatase 50 units/L (35-129) 07/29/19 08:28 C-Reactive Protein 36.00 mg/dL (0.00-1.30) H 07/29/19 06:47 Total Protein 5.6 g/dL (6.3-8.2) L 07/29/19 08:28 Albumin 2.9 g/dL (3.9-5) L 07/29/19 08:28 Albumin/Globulin Ratio 1.1 % 07/29/19 08:28 Lipase 129 units/L (13-60) H 07/29/19 08:28 Urine Color Yellow (Yellow) 07/28/19 02:05 Urine Turbidity Slightly-cloudy (Clear) 07/28/19 02:05 Urine pH 5.0 (5.0-7.0) 07/28/19 02:05 Ur Specific [place] 1.033 (1.003-1.030) H 07/28/19 02:05 Urine Protein 100 mg/dl mg/dL (Negative) 07/28/19 02:05 Urine Glucose (UA) Neg mg/dL (Negative) 07/28/19 02:05 Urine Ketones Tr mg/dL (Negative) 07/28/19 02:05 Urine Blood Mod (Negative) 07/28/19 02:05 Urine Nitrite Neg (Negative) 07/28/19 02:05 Urine Bilirubin Neg (Negative) 07/28/19 02:05 Urine Urobilinogen < 2.0 mg/dL (<2.0) 07/28/19 02:05 Ur Leukocyte Esterase Neg (Negative) 07/28/19 02:05 Urine WBC (Auto) 4.0 /HPF (0.0-6.0) 07/28/19 02:05 Urine RBC (Auto) 2.0 /HPF (0.0-6.0) 07/28/19 02:05 U Epithel Cells (Auto) < 1.0 /HPF (0-13.0) 07/28/19 02:05 Hepatitis A IgM Ab Non-reactive (NonReactive) 07/27/19 10:51 Hep Bs Antigen Non-reactive (Negative) 07/27/19 10:51 Hep B Core IgM Ab Non-reactive (NonReactive) 07/27/19 10:51 Hepatitis C Antibody Non-reactive (NonReactive) 07/27/19 10:51 Active Medications - Current Medications Current Medications: Generic Name Dose Route Start Last Admin Trade Name Freq PRN Reason Stop Dose Admin Acetaminophen 650 mg 07/27/19 03:01 07/29/19 00:03 Tylenol PO 650 mg Q4H PRN Administration Pain MILD(1-3)/Fever >100.5/URBINA Acetaminophen/Hydrocodone Bitart 1 each 07/28/19 10:37 [place] 10/325 PO Q6H PRN Pain, Moderate (4-6) Enoxaparin Sodium 40 mg 07/27/19 10:00 07/28/19 09:21 Lovenox SUB-Q 40 mg QDAY ABBI Administration Hydralazine HCl 10 mg 07/28/19 10:36 07/29/19 06:05 Apresoline IV 10 mg Q4H PRN Administration BP >160/100 Hydromorphone HCl 1 mg 07/27/19 10:30 07/29/19 08:46 Dilaudid IV 1 mg Q4H PRN Administration Pain , Severe (7-10) Sodium Chloride 1,000 mls @ 200 mls/hr 07/27/19 04:00 07/29/19 06:04 Nacl 0.9% 1000 Ml IV 200 mls/hr DIRECT ABBI Administration Piperacillin Sod/Tazobactam Sod 4.5 gm in 100 mls @ 200 mls/hr 07/29/19 00:00 07/29/19 08:45 Zosyn/Ns 4.5gm/100ml IV 200 mls/hr Q8H ABBI Administration Protocol Lorazepam 2 mg 07/27/19 03:14 07/28/19 21:56 Ativan IV 2 mg Q1HR PRN Administration CIWA-Ar 8-15 Lorazepam 4 mg 07/27/19 03:14 Ativan IV Q1HR PRN CIWA-Ar 16-25 Metoclopramide HCl 10 mg 07/27/19 03:01 Reglan IV Q6H PRN Nausea And Vomiting Metoprolol Tartrate 25 mg 07/27/19 03:14 07/28/19 21:00 Lopressor PO 25 mg BID ABBI Administration Ondansetron HCl 4 mg 07/27/19 03:01 07/28/19 15:47 Zofran IV 4 mg Q4H PRN Administration Nausea And Vomiting Polyethylene Glycol 17 gm 07/28/19 12:26 07/28/19 13:52 Miralax 3350 PO 17 gm BID PRN Administration Constipation Sodium Chloride 10 ml 07/27/19 10:00 07/28/19 21:01 Sodium Chloride Flush Syringe 10 Ml IV 10 ml BID ABBI Administration Sodium Chloride 10 ml 07/27/19 03:01 07/27/19 19:38 Sodium Chloride Flush Syringe 10 Ml IV 10 ml PRN PRN Administration LINE FLUSH
[2019-07-29] MEDS: ENOXAPARIN 40 MG/0.4 ML INJ SUB-Q SCH (10:38)
[2019-07-29] MEDS: METOPROLOL TARTRATE 25 MG TAB PO SCH ×2 (10:38→21:42)
--- NOTE | 2019-07-29 11:10 | Gastroenterology Progress Note ---
Assessment and Plan GI: resolving pancreatitis in setting of gallstones and alcohol use - tolerated soft diet - lipase improved, lft's improved - continue conservative management, advance diet as tolerated - other issues including PNA per primary team - otherwise ok to d/c from GI standpoint, will sign off, call if needed Subjective Date of service: 07/29/19 Interval history: - pt reports pain improved, tolerating soft diet Objective - Constitutional Vitals: Temp Pulse Resp BP Pulse Ox 99.6 F 125 H 20 166/111 90 07/29/19 05:32 07/29/19 10:38 07/29/19 05:32 07/29/19 10:38 07/29/19 05:32 General appearance: no acute distress - EENT Eyes: PERRL - Respiratory Respiratory: bilateral: CTA - Cardiovascular Rhythm: regular Heart Sounds: Present: S1 & S2 - Gastrointestinal General gastrointestinal: Present: soft, non-tender, non-distended - Labs CBC & Chem 7: 07/29/19 08:28 07/29/19 08:28 Labs: Laboratory Results - last 24 hr 07/28/19 07/29/19 07/29/19 02:05 06:47 08:28 WBC 11.8 H RBC 3.64 L Hgb 11.1 L Hct 33.2 L D MCV 91 MCH 30 MCHC 33 RDW 14.6 Plt Count 134 L Lymph % (Auto) 7.0 L [place] % (Auto) 15.5 H Eos % (Auto) 0.1 Baso % (Auto) 0.5 Lymph # 0.8 L [place] # 1.8 H Eos # 0.0 Baso # 0.1 Seg Neutrophils % 76.9 H Seg Neutrophils # 9.1 H Sodium Potassium Chloride Carbon Dioxide Anion Gap BUN Creatinine Estimated GFR BUN/Creatinine Ratio Glucose Calcium Total Bilirubin AST ALT Alkaline Phosphatase C-Reactive Protein 36.00 H Total Protein Albumin Albumin/Globulin Ratio Lipase Urine Color Yellow Urine Turbidity Slightly-cloudy Urine pH 5.0 Ur Specific [place] 1.033 H Urine Protein 100 mg/dl Urine Glucose (UA) Neg Urine Ketones Tr Urine Blood Mod Urine Nitrite Neg Urine Bilirubin Neg Urine Urobilinogen < 2.0 Ur Leukocyte Esterase Neg Urine WBC (Auto) 4.0 Urine RBC (Auto) 2.0 U Epithel Cells (Auto) < 1.0 07/29/19 08:28 WBC RBC Hgb Hct MCV MCH MCHC RDW Plt Count Lymph % (Auto) [place] % (Auto) Eos % (Auto) Baso % (Auto) Lymph # [place] # Eos # Baso # Seg Neutrophils % Seg Neutrophils # Sodium 136 L D Potassium 3.6 D Chloride 101.9 Carbon Dioxide 22 Anion Gap 16 BUN 12 Creatinine 0.9 Estimated GFR > 60 BUN/Creatinine Ratio 13 Glucose 97 Calcium 7.8 L Total Bilirubin 1.00 AST 27 ALT 31 Alkaline Phosphatase 50 C-Reactive Protein Total Protein 5.6 L Albumin 2.9 L Albumin/Globulin Ratio 1.1 Lipase 129 H Urine Color Urine Turbidity Urine pH Ur Specific [place] Urine Protein Urine Glucose (UA) Urine Ketones Urine Blood Urine Nitrite Urine Bilirubin Urine Urobilinogen Ur Leukocyte Esterase Urine WBC (Auto) Urine RBC (Auto) U Epithel Cells (Auto)
[2019-07-29] MEDS: POLYETHYLENE GLYCOL 3350 17 GM POWDER PO PRN (18:01)
[2019-07-29] MEDS: ONDANSETRON 4 MG/2 ML INJ IV PRN (21:46)
[2019-07-30] MEDS: HYDROmorphone 1 MG/1 ML INJ IV PRN ×3 (03:04→12:24)
[2019-07-30] MEDS: SODIUM CHLORIDE 0.9% 1000 ML 1,000 ML IV SCH ×3 (03:06→13:04)
[2019-07-30] MEDS: hydrALAZINE 20 MG/1 ML INJ IV PRN ×2 (03:15→11:14)
[2019-07-30] MEDS: PIPERACIL/TAZOBACTA 4.5/NS 100 4.5 GM/100 ML VIAL IV SCH (09:00)
[2019-07-30] MEDS: ENOXAPARIN 40 MG/0.4 ML INJ SUB-Q SCH (09:30)
[2019-07-30] MEDS: METOPROLOL TARTRATE 25 MG TAB PO SCH (09:31)
--- NOTE | 2019-07-30 10:54 | Discharge Summary ---
Providers - Providers Date of Admission: 07/27/19 03:01 Attending physician: MELIZA UREÑA MD 07/27/19 03:01 Consult to Physician [CONS] Routine Comment: Consulting Provider: TALISHA KIRK Physician Instructions: Reason For Exam: pancreatitis Primary care physician: WAGE ANALYST Hospitalization Condition: Stable Hospital course: 33-year-old man who admits to alcohol abuse and binge drinking who presents with 2 days of severe abdominal pain. Fever/Sepsis due to Left lobe PNA Patient was treated with antibiotics Etoh pancreatitis IVF, pain meds, antiemetics, supportive care His diet was advanced, he improved. Alcohol dependence/abuse Counseled on alcohol cessation Preventative health counseling performed for 17 minutes RUQ sono shows gallstones, no cholecystitis of choledocholithiasis dvt ppx- scds, early ambulation, lovenox Disposition: - TO HOME OR SELFCARE Time spent for discharge: 33 mins Core Measure Documentation - Palliative Care Palliative Care/ Comfort Measures: Not Applicable - Core Measures Any of the following diagnoses?: none Exam - Constitutional Vitals: Temp Pulse Resp BP Pulse Ox 98.8 F 103 H 20 163/97 93 07/30/19 05:20 07/30/19 09:31 07/30/19 10:40 07/30/19 09:31 07/30/19 05:20 General appearance: Present: no acute distress, well-nourished - EENT Eyes: Present: PERRL ENT: hearing intact, clear oral mucosa - Neck Neck: Present: supple, normal ROM - Respiratory Respiratory effort: normal Respiratory: left: rhonchi - Cardiovascular Heart Sounds: Present: S1 & S2. Absent: rub, click - Extremities Extremities: pulses symmetrical, No edema Peripheral Pulses: within normal limits - Abdominal General gastrointestinal: Present: soft, non-tender, non-distended, normal bowel sounds Male genitourinary: Present: normal - Integumentary Integumentary: Present: clear, warm, dry - Musculoskeletal Musculoskeletal: gait normal, strength equal bilaterally - Psychiatric Psychiatric: appropriate mood/affect, intact judgment & insight - Neurologic Neurologic: CNII-XII intact, moves all extremities Plan Follow up with: PRIMARY CARE, [Primary Care Provider] - 7 Days Prescriptions: Amoxicillin/Potassium Clav [Augmentin 875-125 Tablet] 1 each PO BID #10 tablet Polyethylene Glycol 3350 [Miralax 3350] 17 gm PO BID PRN #60 powd.pack PRN Reason: Constipation HYDROcodone/APAP 10-325 [[place] 10-325 mg TAB] 1 each PO Q6HR PRN #20 tablet PRN Reason: Pain Omeprazole 40 mg PO DAILY #30 capsule. Azithromycin [Zithromax Z-BERE] 0 mg PO DAILY #1 pack Ondansetron [Zofran ODT TAB] 8 mg PO Q8HR PRN #20 tab.rapdis PRN Reason: Nausea
[2019-07-30 11:15] VITALS: BP 169/101
--- NOTE | 2019-07-30 14:51 | Cat Scan Report ---
CT ABDOMEN AND PELVIS WITH CONTRAST HISTORY: fever and pancreatitis COMPARISON: 07/27/2019 TECHNIQUE: Axial CT images were obtained through the abdomen and pelvis after 100 cc of Omnipaque 300 intravenously. Sagittal and coronal reformatted images. All CT scans at this location are performed using CT dose reduction for ALARA by means of automated exposure control. FINDINGS: CT ABDOMEN: Lung Bases: Small right pleural effusion and moderate left pleural effusion have developed since the previous exam. The visualized aerated portions of the lungs demonstrate no infiltrate. There is compr essive atelectasis throughout most of the left lower lobe. Heart size is normal. Liver: Mild diffuse fatty infiltration. No focal lesion or enlargement. Biliary: No significant abnormality. Spleen: No significant abnormality. Unenlarged. Pancreas: The pancreas is edematous with moderate to severe surrounding inflammatory changes. A moder ate size areas of nonperfusion has developed in the pancreatic neck and body region measuring up to 6 .4 cm in length and 3.9 cm in width suggesting necrotizing pancreatitis. No gas bubbles are identifie d in the pancreatic bed to suggest superimposed infection. No obvious pancreatic mass or mature pseud ocyst. Adrenals: No significant abnormality. Kidneys: No significant abnormality. Lymphatics: No lymphadenopathy. Vasculature: No significant abnormality. Bowel/Peritoneum: No significant abnormality. No free air. There is increased ascites throughout the abdomen. Ascites surrounds the pancreatic bed, liver, spleen and extends down the paracolic gutters i nto the pelvis. No drainable collection.. Normal appendix. CT PELVIS: : No significant abnormality. Osseous Structures: No significant abnormality. Additional Findings: None IMPRESSION: A moderate size area of nonperfusion has developed in the mid pancreas which could represent necrotiz ing pancreatitis. No evidence for superimposed infection. New bilateral pleural effusions, left greater than right. Increased ascites. Signer Name: Ghanshyam Patel Jr, MD Signed: 07/30/2019 2:47 PM Workstation Name: [id number]
== END 2019-07-30 16:49 | disposition home or self-care (01) | DRG 871 ==
LOC: ED 23:15 → 3A 07-27 03:01
PROVIDERS: ADMIT Internal Medicine; ATTEND Internal Medicine
DX: A41.9 Sepsis, unspecified organism (principal); J18.1 Lobar pneumonia, unspecified organism; K85.20 Alcohol induced acute pancreatitis without necrosis or infection; F10.20 Alcohol dependence, uncomplicated; K80.80 Other cholelithiasis without obstruction; I10 Essential (primary) hypertension; F17.200 Nicotine dependence, unspecified, uncomplicated; F12.90 Cannabis use, unspecified, uncomplicated; K75.9 Inflammatory liver disease, unspecified; Z71.41 Alcohol abuse counseling and surveillance of alcoholic; Z82.49 Family history of ischemic heart disease and other diseases of the circulatory system; Z79.899 Other long term (current) drug therapy; Z83.3 Family history of diabetes mellitus
CPT/HCPCS: 36415; 71045; 74177; 76705; 80048; 80053; 80074; 80076; 81001; 83690; 83735; 84100; 85025; 85610; 86140; 87040; 99406; G0378; J0360; J1170; J1650; J2060; J2270; J2405; J2543; J7030; Q9967

== ENCOUNTER 2020-09-25 14:40 | Inpatient (IN) | payer OTHER, SELFPAY ==
[2020-09-25] MEDS ORDERED: ONDANSETRON 4 MG ODT TAB PO ONE (14:55)
[2020-09-25] MEDS ORDERED: MORPHINE 4 MG/1 ML INJ IV ONE ×2 (14:56→16:21)
[2020-09-25] MEDS ORDERED: SODIUM CHLORIDE 0.9% 1000 ML 1,000 ML IV ONE (14:56)
--- NOTE | 2020-09-25 14:58 | Event Note ---
ED Screening Note Date of service: 09/25/20 Time: 14:57 ED Screening Note: Complains of sudden onset of severe mid abdominal pain and vomiting today History of pancreatitis This initial assessment/diagnostic orders/clinical plan/treatment(s) is/are subject to change based on patients health status, clinical progression and re- assessment by fellow clinical providers in the ED. Further treatment and workup at subsequent clinical providers discretion. Patient/guardian urged not to elope from the ED as their condition may be serious if not clinically assessed and managed. Initial orders include: labs CT PO zofran given
[2020-09-25 15:27] LABS: Basophils # (Auto) 0.1 K/mm3 (0.0-0.1); Eosinophils # (Auto) 0.1 K/mm3 (0.0-0.4); Eosinophils % (Auto) 0.7 % (0.0-4.3); Hematocrit 40.9 % (35.5-45.6); Hemoglobin 13.4 gm/dl (11.8-15.2); Lymphocytes # (Auto) 2.6 K/mm3 (1.2-5.4); Lymphocytes % (Auto) 30.9 % (13.4-35.0); Mean Corpuscular HGB Conc 33 % (32-34); Mean Corpuscular Volume 94 fl (84-94); Monocytes # (Auto) 0.8 K/mm3 (0.0-0.8); Monocytes % (Auto) 9.1 % (0.0-7.3); Platelet Count 324 K/mm3 (140-440); Red Blood Count 4.37 M/mm3 (3.65-5.03)
[2020-09-25 15:42] LABS: Alanine Aminotransferase 16 units/L (7-56); Albumin 4.5 g/dL (3.9-5); BUN/Creatinine Ratio 15; Blood Urea Nitrogen 15 mg/dL (9-20); Hemolysis Index 16
[2020-09-25] MEDS ORDERED: MORPHINE 4 MG/1 ML INJ IM ONE (16:09)
[2020-09-25] MEDS ORDERED: SODIUM CHLORIDE 0.9% 1000 ML 1,000 ML ONE (17:59)
--- NOTE | 2020-09-25 18:27 | Cat Scan Report ---
CT ABDOMEN AND PELVIS WITH CONTRAST INDICATION / CLINICAL INFORMATION: severe mid pain, vomiting, hx of pancreatitis. TECHNIQUE: Axial CT images were obtained through the abdomen and pelvis after IV contrast. All CT sc ans at this location are performed using CT dose reduction for ALARA by means of automated exposure c ontrol. COMPARISON: CT dated 07/30/2019 FINDINGS: LOWER CHEST: There is mild motion artifact which limits evaluation of the lung bases. The lung bases are clear. LIVER: Unremarkable GALLBLADDER/BILIARY TREE: Unremarkable PANCREAS: There is a 3.5 x 3.4 cm cystic area centered within the neck of the pancreas. This appears to be continuous with the pancreatic duct, which is dilated in the body and tail. Small adjacent flui d density structure seen on series 2 image 52 may be part of the larger cystic area. There is inflamm atory stranding of the pancreatic head and uncinate process. No significant inflammatory changes are present about the body or tail. Otherwise, no organized fluid collection. SPLEEN: Unremarkable ADRENALS: Unremarkable KIDNEYS / URETER: Unremarkable URINARY BLADDER: Unremarkable REPRODUCTIVE ORGANS: Unremarkable STOMACH / SMALL BOWEL: Stomach and small bowel are normal in caliber. No evidence of bowel inflammati on. COLON: The colon is unremarkable. The appendix is normal in caliber. LYMPH NODES: No significant adenopathy. VASCULATURE: No significant abnormality. SKELETAL SYSTEM: No acute osseous findings. IMPRESSION: 1. Inflammatory stranding about the pancreatic head and uncinate process, most compatible with acute interstitial edematous pancreatitis. 2. 3.5 cm cystic area centered within the neck of the pancreas which appears to be continuous with th e pancreatic duct, which is dilated in the body and tail. This is most consistent with sequela of ady or necrotizing pancreatitis, and may reflect focal ectasia of the duct or area of walled off necrosis with compression of the duct. MRCP may be helpful for further evaluation. Signer Name: Brandyn Cochran MD Signed: 09/25/2020 6:23 PM Workstation Name: [id number]
[2020-09-25] MEDS ORDERED: HYDROmorphone 1 MG/1 ML INJ IV ONE (18:50)
[2020-09-25] MEDS ORDERED: METOCLOPRAMIDE 10 MG/2 ML INJ IV ONE (18:50)
[2020-09-25 19:37] LABS: Bilirubin,Urine NEG (Negative); Blood,Urine NEG (Negative); Color,Urine Yellow (Yellow); Mucus,Urine 3+ /HPF; Urobilinogen,Urine < 2.0 mg/dL (<2.0)
[2020-09-25 19:38] LABS: WBC,Urine < 1.0 /HPF (0.0-6.0)
--- NOTE | 2020-09-25 20:35 | Emergency Department Report ---
ED Abdominal Pain HPI - General Chief Complaint: Abdominal Pain Stated Complaint: ABDOMINAL PAIN Time Seen by Provider: 09/25/20 14:55 Source: patient, EMS Mode of arrival: Wheelchair Limitations: No Limitations - History of Present Illness Initial Comments: This is a 35-year-old male nontoxic, well nourished in appearance, with some signs of distress due to pain presents to the ED with c/o of nausea and vomiting and abdominal pain several days. Patient describes vomiting as food content and yellow gastric acid. Patient describes abdominal pain as cramping and aching with level of 10/10 diffuse. Patient denies chest pain, short of breath, fever, hemoptysis, blood in stool, chills, headache, stiff neck, numbness or tingling. Patient denies any diarrhea or constipation. Denies any blood in stool. Patient denies any recent travels. Patient denies any allergies. MD Complaint: abdominal pain -: days(s) Location: diffuse Radiation: none Migration to: no migration Severity: severe Severity scale (0 -10): 10 Quality: cramping, aching Consistency: constant Improves With: nothing Worsens With: nothing Associated Symptoms: nausea, vomiting. denies: diarrhea, fever, chills, constipation, dysuria, hematemesis, hematochezia, melena, hematuria, anorexia, syncope - Related Data Previous Rx's Medication Instructions Recorded Last Taken Type Amlodipine Besylate [Norvasc] 10 mg PO DAILY #60 tablet 02/27/20 Unknown Rx Allergies Allergy/AdvReac Type Severity Reaction Status Date / Time No Known Allergies Allergy Unverified 08/02/16 23:36 ED Review of Systems ROS: Stated complaint: ABDOMINAL PAIN Other details as noted in HPI Constitutional: denies: chills, fever Eyes: denies: eye pain, eye discharge, vision change ENT: denies: ear pain, throat pain Respiratory: denies: cough, shortness of breath, wheezing Cardiovascular: denies: chest pain, palpitations Endocrine: no symptoms reported Gastrointestinal: abdominal pain, nausea, vomiting. denies: diarrhea, constipation, hematemesis, melena, hematochezia Genitourinary: denies: urgency, dysuria Musculoskeletal: denies: back pain, joint swelling, arthralgia Skin: denies: rash, lesions Neurological: denies: headache, weakness, paresthesias Psychiatric: denies: anxiety, depression Hematological/Lymphatic: denies: easy bleeding, easy bruising ED Past Medical Hx - Past Medical History Previous Medical History?: Yes Hx Hypertension: Yes Hx CVA: No Hx Heart Attack/AMI: No Hx Congestive Heart Failure: No Hx Diabetes: No Hx Deep Vein Thrombosis: No Hx Pulmonary Embolism: No Hx GERD: No Hx Liver Disease: No Hx Renal Disease: No Hx Sickle Cell Disease: No Hx Arthritis: No Hx Headaches / Migraines: No Hx Seizures: No Hx Kidney Stones: No Hx Psychiatric Treatment: Yes (cutter) Hx Asthma: No Hx COPD: No Hx Tuberculosis: No Hx Dementia: No Hx HIV: No Additional medical history: pt was informed in the past he needed his galdbladder removed. pancreatitis - Surgical History Past Surgical History?: Yes Hx Coronary Stent: No Hx Open Heart Surgery: No Hx Pacemaker: No Hx Internal Defibrillator: No Hx Cholecystectomy: No Hx Appendectomy: No Hx Breast Surgery: No Additional Surgical History: Tonsilectomy - Social History Smoking Status: Current Every Day Smoker Substance Use Type: Alcohol - Medications Home Medications: Home Medications Medication Instructions Recorded Confirmed Last Taken Type Amlodipine Besylate [Norvasc] 10 mg PO DAILY #60 tablet 02/27/20 Unknown Rx ED Physical Exam - General Limitations: No Limitations General appearance: alert, in no apparent distress - Head Head exam: Present: atraumatic, normocephalic - Eye Eye exam: Present: normal appearance - Neck Neck exam: Present: normal inspection, full ROM. Absent: tenderness, meningismus, lymphadenopathy - Respiratory Respiratory exam: Present: normal lung sounds bilaterally. Absent: respiratory distress, wheezes, rales, rhonchi, stridor, chest wall tenderness, accessory muscle use, decreased breath sounds, prolonged expiratory - Cardiovascular Cardiovascular Exam: Present: regular rate, normal rhythm, normal heart sounds. Absent: bradycardia, tachycardia, irregular rhythm, systolic murmur, diastolic murmur, rubs, gallop - GI/Abdominal GI/Abdominal exam: Present: soft, tenderness (bilateral upper abdominal area), normal bowel sounds. Absent: distended, guarding, rebound, rigid, diminished bowel sounds - Extremities Exam Extremities exam: Present: normal inspection, full ROM - Back Exam Back exam: Present: normal inspection, full ROM. Absent: tenderness, CVA tenderness (R), CVA tenderness (L), muscle spasm, paraspinal tenderness, vertebral tenderness, rash noted - Neurological Exam Neurological exam: Present: alert, oriented X3, normal gait - Psychiatric Psychiatric exam: Present: normal affect, normal mood - Skin Skin exam: Present: warm, dry, intact, normal color. Absent: rash ED Course Vital Signs 09/25/20 09/25/20 14:41 17:03 Temperature 97.9 F Pulse Rate 75 Respiratory 20 18 Rate Blood Pressure 180/119 [Right] O2 Sat by Pulse 100 Oximetry - Reevaluation(s) Reevaluation #1: 09/25/20 20:32 Patient is speaking in full sentences with pain noted. Despite of IV treatment for pain patient is still in consistent pain. Patient will be admitted at this time for intractable pain and pancreatitis. - Consultations Consultation #1: 09/25/20 20:32 Patient has been consulted with Penny Ann about patient history, physical exam, and labs/CT results and agrees for admission. Consultation #2: 09/25/20 21:35 Patient has been consulted with Dr. Golden about patient history, physical exam, and labs/CT results and accepts patient to services. ED Medical Decision Making - Lab Data Result diagrams: 09/25/20 15:07 09/25/20 15:07 Lab Results 09/25/20 09/25/20 09/25/20 Range/Units 15:07 15:07 19:08 WBC 8.4 (4.5-11.0) K/mm3 RBC 4.37 (3.65-5.03) M/mm3 Hgb 13.4 (11.8-15.2) gm/dl Hct 40.9 (35.5-45.6) % MCV 94 (84-94) fl MCH 31 (28-32) pg MCHC 33 (32-34) % RDW 13.0 L (13.2-15.2) % Plt Count 324 (140-440) K/mm3 Lymph % (Auto) 30.9 (13.4-35.0) % [place] % (Auto) 9.1 H (0.0-7.3) % Eos % (Auto) 0.7 (0.0-4.3) % Baso % (Auto) 1.0 (0.0-1.8) % Lymph # (Auto) 2.6 (1.2-5.4) K/mm3 [place] # (Auto) 0.8 (0.0-0.8) K/mm3 Eos # (Auto) 0.1 (0.0-0.4) K/mm3 Baso # (Auto) 0.1 (0.0-0.1) K/mm3 Seg Neutrophils % 58.3 (40.0-70.0) % Seg Neutrophils # 4.9 (1.8-7.7) K/mm3 Sodium 143 (137-145) mmol/L Potassium 4.2 (3.6-5.0) mmol/L Chloride 105.4 (98-107) mmol/L Carbon Dioxide 23 (22-30) mmol/L Anion Gap 19 mmol/L BUN 15 (9-20) mg/dL Creatinine 1.0 (0.8-1.3) mg/dL Estimated GFR > 60 ml/min BUN/Creatinine Ratio 15 % Glucose 114 H (75-100) mg/dL Calcium 10.0 (8.4-10.2) mg/dL Total Bilirubin 0.30 (0.1-1.2) mg/dL AST 16 (5-40) units/L ALT 16 (7-56) units/L Alkaline Phosphatase 133 H (35-129) units/L Total Protein 7.5 (6.3-8.2) g/dL Albumin 4.5 (3.9-5) g/dL Albumin/Globulin Ratio 1.5 % Lipase 19 (13-60) units/L Urine Color Yellow (Yellow) Urine Turbidity Clear (Clear) Urine pH 5.0 (5.0-7.0) Ur Specific [place] > 1.059 H (1.003-1.030) Urine Protein 30 mg/dl (Negative) mg/dL Urine Glucose (UA) Neg (Negative) mg/dL Urine Ketones 20 (Negative) mg/dL Urine Blood Neg (Negative) Urine Nitrite Neg (Negative) Urine Bilirubin Neg (Negative) Urine Urobilinogen < 2.0 (<2.0) mg/dL Ur Leukocyte Esterase Neg (Negative) Urine WBC (Auto) < 1.0 (0.0-6.0) /HPF Urine RBC (Auto) 3.0 (0.0-6.0) /HPF U Epithel Cells (Auto) < 1.0 (0-13.0) /HPF Urine Mucus 3+ /HPF - Radiology Data Referring Physician: GREG JIMENEZ Patient Name: DEANN CABRERA Date of : 1985 Sex: Male Report Date: 2020-09-25 Report Status: Finalized [facility] [address] [id number] Cat Scan Report Signed Patient: DEANN CABRERA MR#: [id number] : 1985 Acct:[id number] Age/Sex: 35 / M ADM Date: 09/25/20 Loc: ED Attending Dr: Ordering Physician: GREG JIMENEZ Date of Service: 09/25/20 Procedure(s): CT abdomen pelvis w con Accession Number(s): [id number] cc: GREG JIMENEZ CT ABDOMEN AND PELVIS WITH CONTRAST INDICATION / CLINICAL INFORMATION: severe mid pain, vomiting, hx of pancreatitis. TECHNIQUE: Axial CT images were obtained through the abdomen and pelvis after IV contrast. All CT scans at this location are performed using CT dose reduction for ALAHoppit by means of automated exposure control. COMPARISON: CT dated 07/30/2019 FINDINGS: LOWER CHEST: There is mild motion artifact which limits evaluation of the lung bases. The lung bases are clear. LIVER: Unremarkable GALLBLADDER/BILIARY TREE: Unremarkable PANCREAS: Ther e is a 3.5 x 3.4 cm cystic area centered within the neck of the pancreas. This appears to be continuous with the pancreatic duct, which is dilated in the body and tail. Small adjacent fluid density structure seen on series 2 image 52 may be part of the larger cystic area. There is inflammatory stranding of the pancreatic head and uncinate process. No significant inflammatory changes are present about the body or tail. Otherwise, no organized fluid collection. SPLEEN: Unremarkable ADRENALS: Unremarkable KIDNEYS / URETER: Unremarkable URINARY BLADDER: Unremarkable REPRODUCTIVE ORGANS: Unremarkable STOMACH / SMALL BOWEL: Stomach and small bowel are normal in caliber. No evidence of bowel inflammation. COLON: The colon is unremarkable. The appendix is normal in caliber. LYMPH NODES: No significant adenopathy. VASCULATURE: No significant abnormality. SKELETAL SYSTEM: No acute osseous findings. IMPRESSION: 1. Inflammatory stranding about the pancreatic head and uncinate process, most compatible with acute interstitial edematous pancreatitis. 2. 3.5 cm cystic area centered within the neck of the pancreas which appears to be continuous with the pancreatic duct, which is dilated in the body and tail. This is most consistent with sequela of prior necrotizing pancreatitis, and may reflect focal ectasia of the duct or area of walled off necrosis with compression of the duct. MRCP may be helpful for further evaluation. Signer Name: Jane Cochran MD Signed: 09/25/2020 6:23 PM Workstation Name: [id number] Transcribed By: JS Dictated By: JANE COCHRAN MD Electronically Authenticated By: JANE COCHRAN MD Signed Date/Time: 09/25/201822 DD/ 05 TD/TT: - Medical Decision Making 35-year-old male the presents with acute pancreatitis and intractable pain. Patient is stable and was examined by me. Patient is notified of the CT results with no questions noted by the patient. Despite IV resuscitation for pain control patient stated pain is not resolved or subsided. Patient admitted with hospitalist. At time of admission, the patient does not seem toxic or ill in appearance. No acute signs of distress noted. Patient agrees to admission treatment plan of care. No further questions noted by the patient. Critical care attestation.: If time is entered above; I have spent that time in minutes in the direct care of this critically ill patient, excluding procedure time. ED Disposition Clinical Impression: Intractable abdominal pain Pancreatitis Qualifiers: Chronicity: acute Pancreatitis type: unspecified pancreatitis type Acute pancreatitis complication: unspecified Qualified Code(s): K85.90 - Acute pancreatitis without necrosis or infection, unspecified Nausea & vomiting Qualifiers: Vomiting type: unspecified Vomiting Intractability: non-intractable Qualified Code(s): R11.2 - Nausea with vomiting, unspecified Disposition: -09 OP ADMIT IP TO THIS HOSP Is pt being admited?: Yes Condition: Stable
[2020-09-25] MEDS ORDERED: ACETAMINOPHEN 325 MG TAB PO PRN (23:18)
[2020-09-25] MEDS: HEPARIN 5,000 UNIT/1 ML VIAL SUB-Q SCH (23:30)
[2020-09-25] MEDS: PIPERACIL/TAZOBACTA 4.5/NS 100 4.5 GM/100 ML VIAL IV SCH (23:33)
[2020-09-25] MEDS ORDERED: PIPERACILLIN/TAZOBACTAM 3.375 3.375 GM/50 ML BAG IV SCH (23:45)
[2020-09-26] MEDS: SODIUM CHLORIDE 0.9% 1000 ML 1,000 ML IV SCH ×3 (01:36→21:46)
[2020-09-26] MEDS: HYDROmorphone 1 MG/1 ML INJ IV PRN ×7 (01:55→23:32)
[2020-09-26] MEDS: ONDANSETRON 4 MG/2 ML INJ IV PRN ×2 (01:56→12:33)
[2020-09-26] MEDS: PIPERACIL/TAZOBACTA 4.5/NS 100 4.5 GM/100 ML VIAL IV SCH ×3 (06:14→21:41)
--- NOTE | 2020-09-26 08:22 | History and Physical Report ---
History of Present Illness Date of examination: 09/25/20 Date of admission: 09/25/20 23:04 Chief complaint: Right Upper Quadrant Abdominal pain History of present illness: History of presenting illness, patient is a 35-year-old male who said he has been having right upper quadrant cramping abdominal pain going on for some days, pain does not radiate and is associated with nausea and vomiting and no diarrhea, also patient denied history of fever or chills, denied history of hematochezia or hematemesis. There was also no history of shortness of breath chest pain or body aches and patient admitted to drinking alcohol on a regular basis and also on the night prior to development of symptoms. Patient said he has had similar symptoms in the past and was told he will need to have his gallbladder removed, he was also told that his symptoms was possibly due to alcohol abuse. Past History Past Medical History: hypertension, other (PANCREATITIS, PSYCHIATRIC ILLNESS) Past Surgical History: tonsillectomy Social history: smoking, alcohol abuse Family history: no significant family history Medications and Allergies Allergies Allergy/AdvReac Type Severity Reaction Status Date / Time No Known Allergies Allergy Unverified 08/02/16 23:36 Home Medications Medication Instructions Recorded Confirmed Last Taken Type Amlodipine Besylate [Norvasc] 10 mg PO DAILY #60 tablet 02/27/20 Unknown Rx Active Meds: Active Medications Acetaminophen (Tylenol) 650 mg PO Q4H PRN PRN Reason: Fever >101 Heparin Sodium (Porcine) (Heparin) 5,000 unit SUB-Q Q12HR ABBI Last Admin: 09/25/20 23:30 Dose: 5,000 unit Documented by: Hydromorphone HCl (Dilaudid) 0.5 mg IV Q3H PRN PRN Reason: Pain , Severe (7-10) Last Admin: 09/26/20 01:55 Dose: 0.5 mg Documented by: Sodium Chloride (Nacl 0.9% 1000 Ml) 1,000 mls @ 150 mls/hr IV DIRECT ABBI Last Admin: 09/26/20 01:36 Dose: 150 mls/hr Documented by: Piperacillin Sod/Tazobactam Sod (Zosyn/Ns 4.5gm/100ml) 4.5 gm in 100 mls @ 200 mls/hr IV Q8HR ABBI; Protocol Last Admin: 09/26/20 06:14 Dose: 200 mls/hr Documented by: Ondansetron HCl (Zofran) 4 mg IV Q8H PRN PRN Reason: Nausea And Vomiting Last Admin: 09/26/20 01:56 Dose: 4 mg Documented by: Review of Systems Constitutional: no fever, no chills, no sweats, no night sweats, no weakness, no malaise Eyes: bilateral: other (NO BILATERAL EYE SYMPTOMS) Ears, nose, mouth and throat: no ear pain, no ear discharge Cardiovascular: no chest pain, no orthopnea, no palpitations, no rapid/irregular heart beat, no edema, no syncope, no lightheadedness, no shortness of breath Respiratory: no cough, no cough with sputum, no excessive sputum, no hemoptysis, no shortness of breath, no congestion, no wheezing Gastrointestinal: abdominal pain, nausea, vomiting, no diarrhea, no constipation, no change in bowel habits, no hematemesis, no melena, no hematochezia, no loss of appetite, no early satiety, no heartburn, no indigestion, no belching, no excessive gas, no jaundice, no dyspepsia/bloating, no early satiety, no lactose intolerance Genitourinary Male: no hematuria, no flank pain, no discharge, no urinary frequency, no urinary hesitancy, no nocturia, no incontinence Rectal: no pain, no itching Musculoskeletal: no neck stiffness, no neck pain, no shooting arm pain, no arm numbness/tingling, no low back pain Integumentary: no rash, no pruritis, no redness, no sores, no wounds, no jaundice, no boils Neurological: no paralysis, no weakness, no parathesias, no numbness, no tingling, no seizures, no syncope, no tremors, no headaches, no migraines, no confusion Psychiatric: no anxiety, no memory loss, no hypersomnia, no suicidal ideation, no depression, no hopelessness, no confusion Endocrine: no polyphagia, no polydipsia, no polyuria, no nocturia, no palpatations Hematologic/Lymphatic: no easy bruising, no easy bleeding Exam - Constitutional Vitals: Temp Pulse Resp BP Pulse Ox 98.1 F 65 18 147/95 96 09/26/20 03:39 09/26/20 03:39 09/26/20 03:39 09/26/20 03:39 09/26/20 03:39 General appearance: Present: no acute distress - EENT Eyes: Present: PERRL, EOM intact. Absent: scleral icterus - Neck Neck: Present: supple, normal ROM - Respiratory Respiratory effort: normal - Cardiovascular Rhythm: regular Heart Sounds: Present: S1 & S2. Absent: gallop, systolic murmur, diastolic murmur, click - Extremities Extremities: no ischemia, No edema Peripheral Pulses: within normal limits - Abdominal General gastrointestinal: Present: deferred, soft, non-tender, non-distended, normal bowel sounds. Absent: tender, distended, rigid, hypoactive bowel sounds, absent bowel sounds, hepatomegaly, splenomegaly, mass, hernia Male genitourinary: Present: deferred - Rectal Rectal Exam: deferred - Integumentary Integumentary: Present: clear, warm, dry. Absent: erythema, jaundice - Musculoskeletal Musculoskeletal: strength equal bilaterally - Psychiatric Psychiatric: appropriate mood/affect HEART Score - HEART Score Risk factors: 1-2 risk factors Troponin: < normal limit - Critical Actions Critical Actions: 0-3 pts:0.9-1.7%risk of adverse cardiac event.Candidate for discharge Results - Labs CBC & Chem 7: 09/25/20 15:07 09/25/20 15:07 Labs: Laboratory Last Values WBC 8.4 K/mm3 (4.5-11.0) 09/25/20 15:07 RBC 4.37 M/mm3 (3.65-5.03) 09/25/20 15:07 Hgb 13.4 gm/dl (11.8-15.2) 09/25/20 15:07 Hct 40.9 % (35.5-45.6) 09/25/20 15:07 MCV 94 fl (84-94) 09/25/20 15:07 MCH 31 pg (28-32) 09/25/20 15:07 MCHC 33 % (32-34) 09/25/20 15:07 RDW 13.0 % (13.2-15.2) L 09/25/20 15:07 Plt Count 324 K/mm3 (140-440) 09/25/20 15:07 Lymph % (Auto) 30.9 % (13.4-35.0) 09/25/20 15:07 [place] % (Auto) 9.1 % (0.0-7.3) H 09/25/20 15:07 Eos % (Auto) 0.7 % (0.0-4.3) 09/25/20 15:07 Baso % (Auto) 1.0 % (0.0-1.8) 09/25/20 15:07 Lymph # (Auto) 2.6 K/mm3 (1.2-5.4) 09/25/20 15:07 [place] # (Auto) 0.8 K/mm3 (0.0-0.8) 09/25/20 15:07 Eos # (Auto) 0.1 K/mm3 (0.0-0.4) 09/25/20 15:07 Baso # (Auto) 0.1 K/mm3 (0.0-0.1) 09/25/20 15:07 Seg Neutrophils % 58.3 % (40.0-70.0) 09/25/20 15:07 Seg Neutrophils # 4.9 K/mm3 (1.8-7.7) 09/25/20 15:07 Sodium 143 mmol/L (137-145) 09/25/20 15:07 Potassium 4.2 mmol/L (3.6-5.0) 09/25/20 15:07 Chloride 105.4 mmol/L (98-107) 09/25/20 15:07 Carbon Dioxide 23 mmol/L (22-30) 09/25/20 15:07 Anion Gap 19 mmol/L 09/25/20 15:07 BUN 15 mg/dL (9-20) 09/25/20 15:07 Creatinine 1.0 mg/dL (0.8-1.3) 09/25/20 15:07 Estimated GFR > 60 ml/min 09/25/20 15:07 BUN/Creatinine Ratio 15 % 09/25/20 15:07 Glucose 114 mg/dL (75-100) H 09/25/20 15:07 Calcium 10.0 mg/dL (8.4-10.2) 09/25/20 15:07 Total Bilirubin 0.30 mg/dL (0.1-1.2) 09/25/20 15:07 AST 16 units/L (5-40) 09/25/20 15:07 ALT 16 units/L (7-56) 09/25/20 15:07 Alkaline Phosphatase 133 units/L (35-129) H 09/25/20 15:07 Total Protein 7.5 g/dL (6.3-8.2) 09/25/20 15:07 Albumin 4.5 g/dL (3.9-5) 09/25/20 15:07 Albumin/Globulin Ratio 1.5 % 09/25/20 15:07 Lipase 19 units/L (13-60) 09/25/20 15:07 Urine Color Yellow (Yellow) 09/25/20 19:08 Urine Turbidity Clear (Clear) 09/25/20 19:08 Urine pH 5.0 (5.0-7.0) 09/25/20 19:08 Ur Specific [place] > 1.059 (1.003-1.030) H 09/25/20 19:08 Urine Protein 30 mg/dl mg/dL (Negative) 09/25/20 19:08 Urine Glucose (UA) Neg mg/dL (Negative) 09/25/20 19:08 Urine Ketones 20 mg/dL (Negative) 09/25/20 19:08 Urine Blood Neg (Negative) 09/25/20 19:08 Urine Nitrite Neg (Negative) 09/25/20 19:08 Urine Bilirubin Neg (Negative) 09/25/20 19:08 Urine Urobilinogen < 2.0 mg/dL (<2.0) 09/25/20 19:08 Ur Leukocyte Esterase Neg (Negative) 09/25/20 19:08 Urine WBC (Auto) < 1.0 /HPF (0.0-6.0) 09/25/20 19:08 Urine RBC (Auto) 3.0 /HPF (0.0-6.0) 09/25/20 19:08 U Epithel Cells (Auto) < 1.0 /HPF (0-13.0) 09/25/20 19:08 Urine Mucus 3+ /HPF 09/25/20 19:08 Microbiology: Microbiology 09/25/20 23:59 Peripheral/Venous Blood Culture - Preliminary Culture in Progress 09/25/20 23:27 Peripheral/Venous Blood Culture - Preliminary Culture in Progress James/IV: IV Catheter Type [Right INT / Saline Lock Antecubital] Assessment and Plan - Patient Problems (1) Pancreatitis Current Visit: Yes Status: Acute Qualifiers: Chronicity: acute Pancreatitis type: unspecified pancreatitis type Acute pancreatitis complication: unspecified Plan to address problem: 1. OBSERVATION IN THE HOSPITAL 2. MRCP 3. G.I CONSULT 4. I.V ZOSYN ANTIBIOTIC 5 NPO 6.I.V NORMAL SALINE 7. I.V DILUDID FOR PAIN 8. I. V ZOFRAN FOR NAUSEA AND VOMITING. 9. G.I CONSULT
--- NOTE | 2020-09-26 08:45 | Magnetic Resonance Report ---
MR ABDOMEN MRCP HISTORY: Acute pancreatitis, abdominal pain TECHNIQUE: Multisequence, multiplanar MRI without contrast. Thin slab and radial MRCP images. COMPARISON: CT abdomen pelvis with contrast dated 09/25/2020 FINDINGS: There are multiple small stones layering in the dependent gallbladder measuring up to 5 mm. No abnorm al gallbladder distention. There is mild gallbladder wall edema and pericholecystic fluid as well as fluid surrounding the pancreatic head. The common bile duct is patent and measures 5.3 mm on the yamileth nal thin slab MRCP images. No choledocholithiasis or stricture is identified. The proximal pancreatic duct is normal. The distal pancreatic duct is dilated up to 4.6 mm in diameter. A 3.1 cm simple appe aring cystic structure arises from the body of the pancreas which is most consistent with a pseudocys t. No obvious pancreatic mass. There is mild pancreatic edema consistent with acute interstitial mushtaq atous pancreatitis. No evidence for pancreatic necrosis. The liver, spleen, kidneys, adrenal glands and visualized bowel loops are unremarkable. The aorta and vascular structures are widely patent. No evidence for adenopathy or mass. Bone marrow signal in the visualized osseous structures is within normal limits. IMPRESSION: Cholelithiasis. No evidence for acute cholecystitis or choledocholithiasis. Findings consistent with acute interstitial edematous pancreatitis. 3.1 cm pseudocyst adjacent to the body of the pancreas. Signer Name: Ghanshyam Patel Jr, MD Signed: 09/26/2020 8:41 AM Workstation Name: [id number]
[2020-09-26] MEDS: HEPARIN 5,000 UNIT/1 ML VIAL SUB-Q SCH ×2 (10:20→21:42)
--- NOTE | 2020-09-26 10:26 | Gastroenterology Consultation ---
History of Present Illness - Reason for Consult Consult date: 09/26/20 pancreatitis Requesting physician: RHIANNON VILLALPANDO - History of Present Illness The patient is a 35 yo aam who presents with abd pain. Pt with h/o alcohol pancreatitis, continued alcohol abuse (reports drinks beer continuously as he is able to afford it). Last alcohol intake 2 days ago. + tobacco use. Had recurrent abd pain, mainly ruq, similar to prior pancreatitis episodes (less severe this time however). + n/v yesterday, none today. symptoms improved since admission. MRI without biliary dilatation, signs of pseudocyst and distal PD dilatation. Past History Past Medical History: hypertension, other (PANCREATITIS, PSYCHIATRIC ILLNESS) Past Surgical History: tonsillectomy Social history: smoking, alcohol abuse Family history: no significant family history Medications and Allergies Allergies Allergy/AdvReac Type Severity Reaction Status Date / Time No Known Allergies Allergy Unverified 08/02/16 23:36 Home Medications Medication Instructions Recorded Confirmed Last Taken Type Amlodipine Besylate [Norvasc] 10 mg PO DAILY #60 tablet 02/27/20 09/26/20 09/23/19 Rx Active Meds: Active Medications Acetaminophen (Tylenol) 650 mg PO Q4H PRN PRN Reason: Fever >101 Heparin Sodium (Porcine) (Heparin) 5,000 unit SUB-Q Q12HR ABBI Last Admin: 09/25/20 23:30 Dose: 5,000 unit Documented by: Hydromorphone HCl (Dilaudid) 0.5 mg IV Q3H PRN PRN Reason: Pain , Severe (7-10) Last Admin: 09/26/20 08:32 Dose: 0.5 mg Documented by: Sodium Chloride (Nacl 0.9% 1000 Ml) 1,000 mls @ 150 mls/hr IV DIRECT ABBI Last Admin: 09/26/20 01:36 Dose: 150 mls/hr Documented by: Piperacillin Sod/Tazobactam Sod (Zosyn/Ns 4.5gm/100ml) 4.5 gm in 100 mls @ 200 mls/hr IV Q8HR ABBI; Protocol Last Admin: 09/26/20 06:14 Dose: 200 mls/hr Documented by: Ondansetron HCl (Zofran) 4 mg IV Q8H PRN PRN Reason: Nausea And Vomiting Last Admin: 09/26/20 01:56 Dose: 4 mg Documented by: Reviewed/updated patient's home and current medications Review of Systems - Review of Systems All systems: negative (per HPI) Exam - Constitutional Vital Signs: Temp Pulse Resp BP Pulse Ox 98.1 F 70 18 157/106 94 09/26/20 09:47 09/26/20 09:47 09/26/20 09:47 09/26/20 09:47 09/26/20 09:47 General appearance: no acute distress - EENT Eyes: PERRL, EOM intact - Respiratory Respiratory effort: normal Respiratory: bilateral: CTA - Cardiovascular Rhythm: regular Heart Sounds: Present: S1 & S2 - Gastrointestinal General gastrointestinal: Present: soft, non-tender (mild epigastric/ruq ttp), non-distended - Integumentary Integumentary: Present: clear, warm - Neurologic Neurological: alert and oriented x3 - Psychiatric Psychiatric: appropriate mood/affect - Labs CBC & Chem 7: 09/25/20 15:07 09/25/20 15:07 Lab Results: Laboratory Results - last 24 hr 09/25/20 09/25/20 09/25/20 15:07 15:07 19:08 WBC 8.4 RBC 4.37 Hgb 13.4 Hct 40.9 MCV 94 MCH 31 MCHC 33 RDW 13.0 L Plt Count 324 Lymph % (Auto) 30.9 [place] % (Auto) 9.1 H Eos % (Auto) 0.7 Baso % (Auto) 1.0 Lymph # (Auto) 2.6 [place] # (Auto) 0.8 Eos # (Auto) 0.1 Baso # (Auto) 0.1 Seg Neutrophils % 58.3 Seg Neutrophils # 4.9 Sodium 143 Potassium 4.2 Chloride 105.4 Carbon Dioxide 23 Anion Gap 19 BUN 15 Creatinine 1.0 Estimated GFR > 60 BUN/Creatinine Ratio 15 Glucose 114 H Calcium 10.0 Total Bilirubin 0.30 AST 16 ALT 16 Alkaline Phosphatase 133 H Total Protein 7.5 Albumin 4.5 Albumin/Globulin Ratio 1.5 Lipase 19 Urine Color Yellow Urine Turbidity Clear Urine pH 5.0 Ur Specific [place] > 1.059 H Urine Protein 30 mg/dl Urine Glucose (UA) Neg Urine Ketones 20 Urine Blood Neg Urine Nitrite Neg Urine Bilirubin Neg Urine Urobilinogen < 2.0 Ur Leukocyte Esterase Neg Urine WBC (Auto) < 1.0 Urine RBC (Auto) 3.0 U Epithel Cells (Auto) < 1.0 Urine Mucus 3+ - Imaging CT Scan: report reviewed MRI: report reviewed Assessment and Plan 1. Acute pancreatitis - likely 2/2 continued alcohol/tobacco use. suspect component of chronic pancreatitis at this time. signs of pseudocyst and PD dilatation now on imaging. clinically appears improved since admission, okay to start trial of clears and cont supportive care/IVF's. 2. Alcohol/tobacco abuse - counseled on cessation. monitor for withdrawal symptoms per primary
--- NOTE | 2020-09-26 11:39 | Progress Note ---
Assessment and Plan Assessment and plan: Patient is a 35-year-old male who said he has been having right upper quadrant cramping abdominal pain going on for some days, pain does not radiate and is associated with nausea and vomiting and no diarrhea, also patient denied history of fever or chills, denied history of hematochezia or hematemesis. There was also no history of shortness of breath chest pain or body aches and patient admitted to drinking alcohol on a regular basis and also on the night prior to development of symptoms. Patient said he has had similar symptoms in the past and was told he will need to have his gallbladder removed, he was also told that his symptoms was possibly due to alcohol abuse. IMPRESSION: Cholelithiasis. No evidence for acute cholecystitis or choledocholithiasis. Findings consistent with acute interstitial edematous pancreatitis. 3.1 cm pseudocyst adjacent to the body of the pancreas. Acute pancreatitis Abdominal pain secondary to pancreatitis Hypertensive urgency likely exacerbated by abdominal pain EtOH use disorder Plan Continue supportive care P.o. diet with clear liquids if tolerating Initiate blood pressure control. 15 minutes of counseling provided to the patient on need to quit EtOH use patient verbalized understanding Anticipate discharge in 24 to 48 hours. History Interval history: Patient seen and examined today remains in pain at the time of my evaluation with the nurse. Noted to have elevated blood pressure. Pain rated a 10/10 in intensity. He states that he continued to drink alcohol because he did not know that pancreatitis stays with you. Hospitalist Physical - Physical exam Narrative exam: VITAL SIGNS: Reviewed. GENERAL: The patient appears normally developed, Vital signs as documented. HEAD: No signs of head trauma. EYES: Pupils are equal. Extraocular motions intact. EARS: Hearing grossly intact. MOUTH: Oropharynx is normal. NECK: No adenopathy, no JVD. CHEST: Chest with clear breath sounds bilaterally. No wheezes, rales, or rhonchi. CARDIAC: Regular rate and rhythm. S1 and S2, without murmurs, gallops, or rubs. VASCULAR: No Edema. Peripheral pulses normal and equal in all extremities. ABDOMEN: Soft, tender although nondistended. No rebound or guarding, and no masses palpated. Bowel Sounds normal. MUSCULOSKELETAL: Good range of motion of all major joints. Extremities without clubbing, cyanosis or edema. NEUROLOGIC EXAM: Alert and oriented x 3 No focal sensory or strength deficits. Speech normal. Follows commands. PSYCHIATRIC: Mood normal. SKIN: detail exam as documented in skin assessment - Constitutional Vitals: Temp Pulse Resp BP Pulse Ox 98.1 F 70 18 157/106 94 09/26/20 09:47 09/26/20 09:47 09/26/20 09:47 09/26/20 09:47 09/26/20 09:47 General appearance: Present: no acute distress HEART Score - HEART Score Risk factors: 1-2 risk factors Troponin: < normal limit - Critical Actions Critical Actions: 0-3 pts:0.9-1.7%risk of adverse cardiac event.Candidate for discharge Results - Labs CBC & Chem 7: 09/25/20 15:07 09/25/20 15:07 Labs: Laboratory Last Values WBC 8.4 K/mm3 (4.5-11.0) 09/25/20 15:07 RBC 4.37 M/mm3 (3.65-5.03) 09/25/20 15:07 Hgb 13.4 gm/dl (11.8-15.2) 09/25/20 15:07 Hct 40.9 % (35.5-45.6) 09/25/20 15:07 MCV 94 fl (84-94) 09/25/20 15:07 MCH 31 pg (28-32) 09/25/20 15:07 MCHC 33 % (32-34) 09/25/20 15:07 RDW 13.0 % (13.2-15.2) L 09/25/20 15:07 Plt Count 324 K/mm3 (140-440) 09/25/20 15:07 Lymph % (Auto) 30.9 % (13.4-35.0) 09/25/20 15:07 [place] % (Auto) 9.1 % (0.0-7.3) H 09/25/20 15:07 Eos % (Auto) 0.7 % (0.0-4.3) 09/25/20 15:07 Baso % (Auto) 1.0 % (0.0-1.8) 09/25/20 15:07 Lymph # (Auto) 2.6 K/mm3 (1.2-5.4) 09/25/20 15:07 [place] # (Auto) 0.8 K/mm3 (0.0-0.8) 09/25/20 15:07 Eos # (Auto) 0.1 K/mm3 (0.0-0.4) 09/25/20 15:07 Baso # (Auto) 0.1 K/mm3 (0.0-0.1) 09/25/20 15:07 Seg Neutrophils % 58.3 % (40.0-70.0) 09/25/20 15:07 Seg Neutrophils # 4.9 K/mm3 (1.8-7.7) 09/25/20 15:07 Sodium 143 mmol/L (137-145) 09/25/20 15:07 Potassium 4.2 mmol/L (3.6-5.0) 09/25/20 15:07 Chloride 105.4 mmol/L (98-107) 09/25/20 15:07 Carbon Dioxide 23 mmol/L (22-30) 09/25/20 15:07 Anion Gap 19 mmol/L 09/25/20 15:07 BUN 15 mg/dL (9-20) 09/25/20 15:07 Creatinine 1.0 mg/dL (0.8-1.3) 09/25/20 15:07 Estimated GFR > 60 ml/min 09/25/20 15:07 BUN/Creatinine Ratio 15 % 09/25/20 15:07 Glucose 114 mg/dL (75-100) H 09/25/20 15:07 Calcium 10.0 mg/dL (8.4-10.2) 09/25/20 15:07 Total Bilirubin 0.30 mg/dL (0.1-1.2) 09/25/20 15:07 AST 16 units/L (5-40) 09/25/20 15:07 ALT 16 units/L (7-56) 09/25/20 15:07 Alkaline Phosphatase 133 units/L (35-129) H 09/25/20 15:07 Total Protein 7.5 g/dL (6.3-8.2) 09/25/20 15:07 Albumin 4.5 g/dL (3.9-5) 09/25/20 15:07 Albumin/Globulin Ratio 1.5 % 09/25/20 15:07 Lipase 19 units/L (13-60) 09/25/20 15:07 Urine Color Yellow (Yellow) 09/25/20 19:08 Urine Turbidity Clear (Clear) 09/25/20 19:08 Urine pH 5.0 (5.0-7.0) 09/25/20 19:08 Ur Specific [place] > 1.059 (1.003-1.030) H 09/25/20 19:08 Urine Protein 30 mg/dl mg/dL (Negative) 09/25/20 19:08 Urine Glucose (UA) Neg mg/dL (Negative) 09/25/20 19:08 Urine Ketones 20 mg/dL (Negative) 09/25/20 19:08 Urine Blood Neg (Negative) 09/25/20 19:08 Urine Nitrite Neg (Negative) 09/25/20 19:08 Urine Bilirubin Neg (Negative) 09/25/20 19:08 Urine Urobilinogen < 2.0 mg/dL (<2.0) 09/25/20 19:08 Ur Leukocyte Esterase Neg (Negative) 09/25/20 19:08 Urine WBC (Auto) < 1.0 /HPF (0.0-6.0) 09/25/20 19:08 Urine RBC (Auto) 3.0 /HPF (0.0-6.0) 09/25/20 19:08 U Epithel Cells (Auto) < 1.0 /HPF (0-13.0) 09/25/20 19:08 Urine Mucus 3+ /HPF 09/25/20 19:08 Microbiology: Microbiology 09/25/20 23:59 Peripheral/Venous Blood Culture - Preliminary Culture in Progress 09/25/20 23:27 Peripheral/Venous Blood Culture - Preliminary Culture in Progress James/IV: IV Catheter Type [Right INT / Saline Lock Antecubital] Active Medications - Current Medications Current Medications: Generic Name Dose Route Start Last Admin Trade Name Freq PRN Reason Stop Dose Admin Acetaminophen 650 mg 09/25/20 23:18 Tylenol PO Q4H PRN Fever >101 Heparin Sodium (Porcine) 5,000 unit 09/25/20 23:15 09/25/20 23:30 Heparin SUB-Q 5,000 unit Q12HR ABBI Administration Hydromorphone HCl 0.5 mg 09/25/20 23:14 09/26/20 08:32 Dilaudid IV 0.5 mg Q3H PRN Administration Pain , Severe (7-10) Sodium Chloride 1,000 mls @ 150 mls/hr 09/25/20 23:15 09/26/20 01:36 Nacl 0.9% 1000 Ml IV 150 mls/hr DIRECT ABBI Administration Piperacillin Sod/Tazobactam Sod 4.5 gm in 100 mls @ 200 mls/hr 09/25/20 23:45 09/26/20 06:14 Zosyn/Ns 4.5gm/100ml IV 200 mls/hr Q8HR ABBI Administration Protocol Ondansetron HCl 4 mg 09/25/20 23:18 09/26/20 01:56 Zofran IV 4 mg Q8H PRN Administration Nausea And Vomiting
[2020-09-26] MEDS: amLODIPine 10 MG TAB PO SCH (11:46)
[2020-09-26] MEDS ORDERED: hydrALAZINE 25 MG TAB PO SCH (14:00)
[2020-09-26] MEDS: hydrALAZINE 100 MG TAB PO SCH (21:42)
[2020-09-27] MEDS: HYDROmorphone 1 MG/1 ML INJ IV PRN ×4 (02:14→11:46)
[2020-09-27] MEDS: hydrALAZINE 100 MG TAB PO SCH ×3 (05:13→21:14)
[2020-09-27] MEDS: PIPERACIL/TAZOBACTA 4.5/NS 100 4.5 GM/100 ML VIAL IV SCH ×3 (05:14→20:59)
[2020-09-27] MEDS ORDERED: D5W/0.9% NACL 1,000 ML IV SCH (10:00)
[2020-09-27] MEDS: amLODIPine 10 MG TAB PO SCH (11:46)
[2020-09-27] MEDS: HEPARIN 5,000 UNIT/1 ML VIAL SUB-Q SCH ×2 (12:18→21:03)
[2020-09-27] MEDS ORDERED: MAGNESIUM HYDROXIDE (MOM) ORAL LIQD UDC PO PRN (12:55)
--- NOTE | 2020-09-27 12:55 | Progress Note ---
Assessment and Plan Assessment and plan: Patient is a 35-year-old male who said he has been having right upper quadrant cramping abdominal pain going on for some days, pain does not radiate and is associated with nausea and vomiting and no diarrhea, also patient denied history of fever or chills, denied history of hematochezia or hematemesis. There was also no history of shortness of breath chest pain or body aches and patient admitted to drinking alcohol on a regular basis and also on the night prior to development of symptoms. Patient said he has had similar symptoms in the past and was told he will need to have his gallbladder removed, he was also told that his symptoms was possibly due to alcohol abuse. IMPRESSION: Cholelithiasis. No evidence for acute cholecystitis or choledocholithiasis. Findings consistent with acute interstitial edematous pancreatitis. 3.1 cm pseudocyst adjacent to the body of the pancreas. Acute pancreatitis Abdominal pain secondary to pancreatitis Hypertensive urgency likely exacerbated by abdominal pain EtOH use disorder Constipation Plan Continue supportive care P.o. diet with clear liquids if tolerating Add p.o. pain control. Add Colace scheduled. Initiate blood pressure control. 15 minutes of counseling provided to the patient on need to quit EtOH use cl byrnes verbalized understanding Anticipate discharge in 24 hours. Plan discussed with the patient History Interval history: Patient seen and examined today improved today but still with some intermittent pain complaints of constipation. Hospitalist Physical - Physical exam Narrative exam: VITAL SIGNS: Reviewed. GENERAL: The patient appears normally developed, Vital signs as documented. HEAD: No signs of head trauma. EYES: Pupils are equal. Extraocular motions intact. EARS: Hearing grossly intact. MOUTH: Oropharynx is normal. NECK: No adenopathy, no JVD. CHEST: Chest with clear breath sounds bilaterally. No wheezes, rales, or rhonchi. CARDIAC: Regular rate and rhythm. S1 and S2, without murmurs, gallops, or rubs. VASCULAR: No Edema. Peripheral pulses normal and equal in all extremities. ABDOMEN: Soft, tender although nondistended. No rebound or guarding, and no masses palpated. Bowel Sounds normal. MUSCULOSKELETAL: Good range of motion of all major joints. Extremities without clubbing, cyanosis or edema. NEUROLOGIC EXAM: Alert and oriented x 3 No focal sensory or strength deficits. Speech normal. Follows commands. PSYCHIATRIC: Mood normal. SKIN: detail exam as documented in skin assessment - Constitutional Vitals: Temp Pulse Resp BP Pulse Ox 99.0 F 132 H 18 124/78 94 09/27/20 11:31 09/27/20 11:35 09/27/20 11:31 09/27/20 11:31 09/27/20 07:28 General appearance: Present: no acute distress HEART Score - HEART Score Risk factors: 1-2 risk factors Troponin: < normal limit - Critical Actions Critical Actions: 0-3 pts:0.9-1.7%risk of adverse cardiac event.Candidate for discharge Results - Labs CBC & Chem 7: 09/25/20 15:07 09/25/20 15:07 Labs: Laboratory Last Values WBC 8.4 K/mm3 (4.5-11.0) 09/25/20 15:07 RBC 4.37 M/mm3 (3.65-5.03) 09/25/20 15:07 Hgb 13.4 gm/dl (11.8-15.2) 09/25/20 15:07 Hct 40.9 % (35.5-45.6) 09/25/20 15:07 MCV 94 fl (84-94) 09/25/20 15:07 MCH 31 pg (28-32) 09/25/20 15:07 MCHC 33 % (32-34) 09/25/20 15:07 RDW 13.0 % (13.2-15.2) L 09/25/20 15:07 Plt Count 324 K/mm3 (140-440) 09/25/20 15:07 Lymph % (Auto) 30.9 % (13.4-35.0) 09/25/20 15:07 [place] % (Auto) 9.1 % (0.0-7.3) H 09/25/20 15:07 Eos % (Auto) 0.7 % (0.0-4.3) 09/25/20 15:07 Baso % (Auto) 1.0 % (0.0-1.8) 09/25/20 15:07 Lymph # (Auto) 2.6 K/mm3 (1.2-5.4) 09/25/20 15:07 [place] # (Auto) 0.8 K/mm3 (0.0-0.8) 09/25/20 15:07 Eos # (Auto) 0.1 K/mm3 (0.0-0.4) 09/25/20 15:07 Baso # (Auto) 0.1 K/mm3 (0.0-0.1) 09/25/20 15:07 Seg Neutrophils % 58.3 % (40.0-70.0) 09/25/20 15:07 Seg Neutrophils # 4.9 K/mm3 (1.8-7.7) 09/25/20 15:07 Sodium 143 mmol/L (137-145) 09/25/20 15:07 Potassium 4.2 mmol/L (3.6-5.0) 09/25/20 15:07 Chloride 105.4 mmol/L (98-107) 09/25/20 15:07 Carbon Dioxide 23 mmol/L (22-30) 09/25/20 15:07 Anion Gap 19 mmol/L 09/25/20 15:07 BUN 15 mg/dL (9-20) 09/25/20 15:07 Creatinine 1.0 mg/dL (0.8-1.3) 09/25/20 15:07 Estimated GFR > 60 ml/min 09/25/20 15:07 BUN/Creatinine Ratio 15 % 09/25/20 15:07 Glucose 114 mg/dL (75-100) H 09/25/20 15:07 Calcium 10.0 mg/dL (8.4-10.2) 09/25/20 15:07 Total Bilirubin 0.30 mg/dL (0.1-1.2) 09/25/20 15:07 AST 16 units/L (5-40) 09/25/20 15:07 ALT 16 units/L (7-56) 09/25/20 15:07 Alkaline Phosphatase 133 units/L (35-129) H 09/25/20 15:07 Total Protein 7.5 g/dL (6.3-8.2) 09/25/20 15:07 Albumin 4.5 g/dL (3.9-5) 09/25/20 15:07 Albumin/Globulin Ratio 1.5 % 09/25/20 15:07 Lipase 19 units/L (13-60) 09/25/20 15:07 Urine Color Yellow (Yellow) 09/25/20 19:08 Urine Turbidity Clear (Clear) 09/25/20 19:08 Urine pH 5.0 (5.0-7.0) 09/25/20 19:08 Ur Specific [place] > 1.059 (1.003-1.030) H 09/25/20 19:08 Urine Protein 30 mg/dl mg/dL (Negative) 09/25/20 19:08 Urine Glucose (UA) Neg mg/dL (Negative) 09/25/20 19:08 Urine Ketones 20 mg/dL (Negative) 09/25/20 19:08 Urine Blood Neg (Negative) 09/25/20 19:08 Urine Nitrite Neg (Negative) 09/25/20 19:08 Urine Bilirubin Neg (Negative) 09/25/20 19:08 Urine Urobilinogen < 2.0 mg/dL (<2.0) 09/25/20 19:08 Ur Leukocyte Esterase Neg (Negative) 09/25/20 19:08 Urine WBC (Auto) < 1.0 /HPF (0.0-6.0) 09/25/20 19:08 Urine RBC (Auto) 3.0 /HPF (0.0-6.0) 09/25/20 19:08 U Epithel Cells (Auto) < 1.0 /HPF (0-13.0) 09/25/20 19:08 Urine Mucus 3+ /HPF 09/25/20 19:08 Microbiology: Microbiology 09/25/20 23:59 Peripheral/Venous Blood Culture - Preliminary NO GROWTH AFTER 24 HOURS 09/25/20 23:27 Peripheral/Venous Blood Culture - Preliminary NO GROWTH AFTER 24 HOURS James/IV: Voiding Method Toilet IV Catheter Type [Right Peripheral IV Antecubital] Active Medications - Current Medications Current Medications: Generic Name Dose Route Start Last Admin Trade Name Freq PRN Reason Stop Dose Admin Acetaminophen 650 mg 09/25/20 23:18 Tylenol PO Q4H PRN Fever >101 Amlodipine Besylate 10 mg 09/26/20 12:00 09/27/20 11:46 Amlodipine PO 10 mg QDAY ABBI Administration Heparin Sodium (Porcine) 5,000 unit 09/25/20 23:15 09/26/20 21:42 Heparin SUB-Q 5,000 unit Q12HR ABBI Administration Hydralazine HCl 100 mg 09/26/20 22:00 09/27/20 05:13 Apresoline PO 100 mg Q8HR ABBI Administration Hydromorphone HCl 0.5 mg 09/27/20 09:14 09/27/20 11:46 Dilaudid IV 0.5 mg Q4H PRN Administration Pain , Severe (7-10) Piperacillin Sod/Tazobactam Sod 4.5 gm in 100 mls @ 200 mls/hr 09/25/20 23:45 09/27/20 05:14 Zosyn/Ns 4.5gm/100ml IV 200 mls/hr Q8HR ABBI Administration Protocol Dextrose/Sodium Chloride 1,000 mls @ 125 mls/hr 09/27/20 10:00 D5ns IV DIRECT ABBI Ondansetron HCl 4 mg 09/25/20 23:18 09/26/20 12:33 Zofran IV 4 mg Q8H PRN Administration Nausea And Vomiting Oxycodone/Acetaminophen 1 tab 09/27/20 09:13 Percocet 5/325 PO Q6H PRN Pain, Moderate (4-6) Nutrition/Malnutrition Assess - Dietary Evaluation Nutrition/Malnutrition Findings: Nutrition Notes Start: 09/26/20 11:27 Freq: Status: Active Protocol: Document 09/26/20 12:12 AT (Rec: 09/26/20 12:17 AT [id number]) Co-Sign 09/26/20 12:12 LM Nutrition Notes 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 Visited pt's room in the AM, but pt was in audible pain. Revisited room after pain medication administration and pt asked that I come back another time d/t immense pain. Per RN and chart, pt was upgraded from NPO to clear liquids. Burn Absent Trauma Absent GI Symptoms Nausea,Vomiting Minimum of two criteria No Interpretation of Weight Loss (severe) >10% in 6 months #1 Nutrition Diagnosis Inadequate oral intake Etiology pancreatis and EtOH dependence As Evidenced by Signs and Symptoms clear liquids, 11.11% weight loss in 7 months, and 5.5% weight loss in 6 months Is patient on ventilator? No Is Patient Ambulatory and/or Out of Bed No REE-([facility]-confined to bed) 2059.040 Calculation Used for Recommendations [facility] Additional Notes PRO needs: 58 - 73 g (0.8-1 g/ kg) Fluid needs: 1 mL/kcal Nutrition Intervention Change Diet Order: Continue Add Supplement/Snack (indicate name/kcal Ensure Clear BID /protein ) Provides kCal: 480 Provides Protein (gm) 16 Goal #1 Diet advancement Anticipated Discharge Needs: Cardiac Follow-Up By: 09/29/20 Additional Comments F/U for diet advancement, full assessment, and PO intakes
--- NOTE | 2020-09-27 15:23 | Gastroenterology Progress Note ---
Assessment and Plan 1. GI: signs resolving alcohol pancreatitis - pt defers advancing diet today - reports abdominal pain improving - advance diet in am - follow labs including CRP - if continue to improve ok to dc from GI standpoint - will follow Subjective Date of service: 09/27/20 Interval history: - reports pain overall improved. Denies other specific complaints. For most part tolerating clear liquid diet Objective - Constitutional Vitals: Temp Pulse Resp BP Pulse Ox 99.0 F 132 H 18 124/78 94 09/27/20 11:31 09/27/20 11:35 09/27/20 11:31 09/27/20 11:31 09/27/20 07:28 General appearance: no acute distress - EENT Eyes: PERRL - Respiratory Respiratory: bilateral: CTA - Cardiovascular Rhythm: regular Heart Sounds: Present: S1 & S2 - Gastrointestinal General gastrointestinal: Present: soft, non-tender, non-distended - Labs CBC & Chem 7: 09/25/20 15:07 09/25/20 15:07
[2020-09-27] MEDS: oxyCODONE /ACETAMINOPHEN 5-325MG TAB PO PRN ×2 (15:39→21:00)
[2020-09-27] MEDS: ONDANSETRON 4 MG/2 ML INJ IV PRN (20:04)
[2020-09-27] MEDS: ACETAMINOPHEN 325 MG TAB PO PRN (21:42)
[2020-09-27] MEDS: DOCUSATE SODIUM 100 MG CAP PO SCH (22:00)
[2020-09-28] MEDS: HYDROmorphone 1 MG/1 ML INJ IV PRN ×3 (01:30→12:25)
[2020-09-28] MEDS: PIPERACIL/TAZOBACTA 4.5/NS 100 4.5 GM/100 ML VIAL IV SCH (06:32)
[2020-09-28] MEDS: hydrALAZINE 100 MG TAB PO SCH (06:33)
--- NOTE | 2020-09-28 07:58 | Discharge Summary ---
Providers - Providers Date of Admission: 09/26/20 11:38 Attending physician: SUNITA BRUSH MD 09/26/20 06:00 Consult to Physician [CONS] Routine Comment: Consulting Provider: AARON PATTERSON Physician Instructions: Reason For Exam: ACUTE PANCREARTITIS WITH NEED FOR MRCP EVALUATION Primary care physician: VP PRODUCTION Hospitalization Reason for admission: Acute pancreatitis Condition: Stable Hospital course: Patient is a 35-year-old male who said he has been having right upper quadrant cramping abdominal pain going on for some days, pain does not radiate and is associated with nausea and vomiting and no diarrhea, also patient denied history of fever or chills, denied history of hematochezia or hematemesis. There was also no history of shortness of breath chest pain or body aches and patient admitted to drinking alcohol on a regular basis and also on the night prior to development of symptoms. Patient said he has had similar symptoms in the past and was told he will need to have his gallbladder removed, he was also told that his symptoms was possibly due to alcohol abuse. IMPRESSION: Cholelithiasis. No evidence for acute cholecystitis or choledocholithiasis. Findings consistent with acute interstitial edematous pancreatitis. 3.1 cm pseudocyst adjacent to the body of the pancreas. 09/28: Patient clinically improved although request some pain medication but in no acute or severe distress as noted in the first day. He understands the plan of care going forward. Of advised him to monitor his bowel regimen. Increase fluid intake. Stay with clear to full liquid diet for the next few days and advance as tolerated to soft. No severe distress noted, respiration easy and unlabored. Outpatient GI follow-up avoid alcohol 20 minutes counseling provided to the patient Acute pancreatitis Abdominal pain secondary to pancreatitis Hypertensive urgency likely exacerbated by abdominal pain EtOH use disorder Constipation Disposition: DC-01 TO HOME OR SELFCARE Time spent for discharge: 35 minutes Core Measure Documentation - Palliative Care Palliative Care/ Comfort Measures: Not Applicable - Core Measures Any of the following diagnoses?: none Exam - Physical Exam Narrative exam: VITAL SIGNS: Reviewed. GENERAL: The patient appears normally developed, Vital signs as documented. HEAD: No signs of head trauma. EYES: Pupils are equal. Extraocular motions intact. EARS: Hearing grossly intact. MOUTH: Oropharynx is normal. NECK: No adenopathy, no JVD. CHEST: Chest with clear breath sounds bilaterally. No wheezes, rales, or rhonchi. CARDIAC: Regular rate and rhythm. S1 and S2, without murmurs, gallops, or rubs. VASCULAR: No Edema. Peripheral pulses normal and equal in all extremities. ABDOMEN: Soft, tender although nondistended. No rebound or guarding, and no masses palpated. Bowel Sounds normal. MUSCULOSKELETAL: Good range of motion of all major joints. Extremities without clubbing, cyanosis or edema. NEUROLOGIC EXAM: Alert and oriented x 3 No focal sensory or strength deficits. Speech normal. Follows commands. PSYCHIATRIC: Mood normal. SKIN: detail exam as documented in skin assessment - Constitutional Vitals: Temp Pulse Resp BP Pulse Ox 99.1 F 101 H 18 131/76 93 09/28/20 04:16 09/28/20 04:16 09/28/20 07:30 09/28/20 04:16 09/28/20 04:16 Plan Activity: advance as tolerated, fall precautions Diet: low fat (FULL LQUID DIET AND ADVANCE TOLERATED) Special Instructions: record daily weights, record daily BP diary Follow up with: PRIMARY CARE, [Primary Care Provider] - 3-5 Days CLAUDIA MUELLRE MD [Staff Physician] - 7 Days Prescriptions: hydrALAZINE [Apresoline TAB] 100 mg PO Q8HR #90 tab Docusate Sodium [Colace CAP] 100 mg PO BID #60 capsule Amlodipine Besylate [Norvasc] 10 mg PO DAILY #30 tablet traMADoL [Ultram] 50 mg PO Q6HR PRN #14 tablet PRN Reason: Pain
[2020-09-28] MEDS: ACETAMINOPHEN 325 MG TAB PO PRN (11:13)
[2020-09-28] MEDS: amLODIPine 10 MG TAB PO SCH (11:13)
[2020-09-28] MEDS: DOCUSATE SODIUM 100 MG CAP PO SCH (11:13)
[2020-09-28] MEDS: HEPARIN 5,000 UNIT/1 ML VIAL SUB-Q SCH (11:15)
[2020-09-28 12:54] VITALS: BP 160/86
--- NOTE | 2020-09-28 16:59 | Gastroenterology Progress Note ---
Assessment and Plan 1. GI: resolving alcohol pancreatitis -diet advanced to soft - avoid alcohol - ok to dc from GI standpoint - will sign off, call if needed Subjective Date of service: 09/28/20 Interval history: - decrease pain,tolerating po Objective - Constitutional Vitals: Temp Pulse Resp BP Pulse Ox 98.5 F 102 H 16 160/86 95 09/28/20 11:29 09/28/20 11:00 09/28/20 11:29 09/28/20 11:29 09/28/20 11:00 General appearance: no acute distress - EENT Eyes: PERRL - Respiratory Respiratory: bilateral: CTA - Cardiovascular Rhythm: regular Heart Sounds: Present: S1 & S2 - Gastrointestinal General gastrointestinal: Present: soft, non-tender - Labs CBC & Chem 7: 09/25/20 15:07 09/25/20 15:07
== END 2020-09-28 17:52 | disposition home or self-care (01) | DRG 440 ==
LOC: ED 14:40 → 3B-SURG 23:04 → OBSVTOIN 09-26 11:38
PROVIDERS: ADMIT Internal Medicine; ATTEND Internal Medicine
DX: K85.90 Acute pancreatitis without necrosis or infection, unspecified (principal); I10 Essential (primary) hypertension; F17.200 Nicotine dependence, unspecified, uncomplicated; Z71.6 Tobacco abuse counseling; I16.0 Hypertensive urgency; K59.00 Constipation, unspecified; Z72.89 Other problems related to lifestyle
CPT/HCPCS: 36415; 74177; 74181; 80053; 81001; 83690; 85025; 87040; 87116; 96365; 96375; G0378; J1170; J1644; J2270; J2405; J2543; J2765; J7030; J7042; Q0162; Q9967

== ENCOUNTER 2021-06-24 13:36 | Emergency (ER) | payer SELFPAY ==
--- NOTE | 2021-06-24 14:20 | Emergency Department Report ---
ED Psych HPI - General Stated Complaint: EVALUATION Time Seen by Provider: 06/24/21 14:10 - History of Present Illness Initial Comments: Patient is 35 years old male with history of paranoid schizophrenia and posttraumatic stress disorder. Patient presented to the ER by police for mental health evaluation. Patient stated that he had an argument with someone and his mother called the police. Patient is very anxious with pressured speech and flight of ideas. Patient is very delusional. When asked about suicidal ideation patient stated that he tried to kill himself before and he showed me an old scar on his left forearm. Patient stated that he has stigma which is worse than auditory hallucination according to the patient report. Patient denied any homicidal ideation. MD Complaint: suicidal ideation, altered mental status - Related Data Previous Rx's Medication Instructions Recorded Last Taken Type Amlodipine Besylate [Norvasc] 10 mg PO DAILY #30 tablet 09/28/20 Unknown Rx Docusate Sodium [Colace CAP] 100 mg PO BID #60 capsule 09/28/20 Unknown Rx hydrALAZINE [Apresoline TAB] 100 mg PO Q8HR #90 tab 09/28/20 Unknown Rx traMADoL [Ultram] 50 mg PO Q6HR PRN #14 tablet 09/28/20 Unknown Rx Allergies Allergy/AdvReac Type Severity Reaction Status Date / Time No Known Allergies Allergy Unverified 08/02/16 23:36 ED Review of Systems ROS: Stated complaint: EVALUATION Other details as noted in HPI Comment: All other systems reviewed and negative Constitutional: denies: chills, fever Respiratory: denies: cough, shortness of breath, SOB with exertion, SOB at rest Cardiovascular: denies: chest pain, palpitations Gastrointestinal: denies: abdominal pain, nausea, vomiting Psychiatric: anxiety, auditory hallucinations, suicidal thoughts ED Past Medical Hx - Past Medical History Hx Hypertension: Yes Hx CVA: No Hx Heart Attack/AMI: No Hx Congestive Heart Failure: No Hx Diabetes: No Hx Deep Vein Thrombosis: No Hx Pulmonary Embolism: No Hx GERD: No Hx Liver Disease: No Hx Renal Disease: No Hx Sickle Cell Disease: No Hx Arthritis: No Hx Headaches / Migraines: No Hx Seizures: No Hx Kidney Stones: No Hx Psychiatric Treatment: Yes (cutter) Hx Asthma: No Hx COPD: No Hx Tuberculosis: No Hx Dementia: No Hx HIV: No Additional medical history: pt was informed in the past he needed his galdbladder removed. pancreatitis - Surgical History Hx Coronary Stent: No Hx Open Heart Surgery: No Hx Pacemaker: No Hx Internal Defibrillator: No Hx Cholecystectomy: No Hx Appendectomy: No Hx Breast Surgery: No Additional Surgical History: Tonsilectomy - Social History Smoking Status: Current Every Day Smoker - Medications Home Medications: Home Medications Medication Instructions Recorded Confirmed Last Taken Type Amlodipine Besylate [Norvasc] 10 mg PO DAILY #30 tablet 09/28/20 Unknown Rx Docusate Sodium [Colace CAP] 100 mg PO BID #60 capsule 09/28/20 Unknown Rx hydrALAZINE [Apresoline TAB] 100 mg PO Q8HR #90 tab 09/28/20 Unknown Rx traMADoL [Ultram] 50 mg PO Q6HR PRN #14 tablet 09/28/20 Unknown Rx ED Physical Exam - General General appearance: alert, in no apparent distress, anxious - Head Head exam: Present: atraumatic, normocephalic, normal inspection - Eye Eye exam: Present: normal appearance - ENT ENT exam: Present: normal exam, normal orophraynx, mucous membranes moist - Neck Neck exam: Present: normal inspection, full ROM. Absent: tenderness, meningismus - Respiratory Respiratory exam: Present: normal lung sounds bilaterally - Cardiovascular Cardiovascular Exam: Present: regular rate, normal rhythm, normal heart sounds - GI/Abdominal GI/Abdominal exam: Present: soft, normal bowel sounds. Absent: distended, tenderness, guarding, rebound, rigid, organomegaly, mass, bruit, pulsatile mass, hernia - Extremities Exam Extremities exam: Present: normal inspection, full ROM, normal capillary refill. Absent: tenderness, pedal edema, joint swelling, calf tenderness - Back Exam Back exam: Present: normal inspection, full ROM. Absent: CVA tenderness (R), CVA tenderness (L) - Neurological Exam Neurological exam: Present: alert, oriented X3, CN II-XII intact, normal gait, reflexes normal. Absent: motor sensory deficit - Psychiatric Psychiatric exam: Present: anxious, manic, suicidal ideation - Skin Skin exam: Present: warm, intact, normal color ED Course Vital Signs 06/24/21 06/24/21 06/25/21 14:12 19:27 08:18 Temperature 98.3 F 98.7 F 98.8 F Pulse Rate 80 75 90 Respiratory 20 18 20 Rate Blood Pressure 147/82 147/96 139/97 [Left] O2 Sat by Pulse 96 97 98 Oximetry 06/25/21 08:38 Temperature Pulse Rate Respiratory Rate Blood Pressure [Left] O2 Sat by Pulse 98 Oximetry ED Medical Decision Making - Lab Data Result diagrams: 06/24/21 14:29 06/24/21 14:29 - Medical Decision Making Patient is 35 years old male with history of paranoid schizophrenia and posttraumatic stress disorder. Patient presented to the ER by police for mental health evaluation. Patient stated that he had an argument with someone and his mother called the police. Patient is very anxious with pressured speech and flight of ideas. Patient is very delusional. When asked about suicidal i deation patient stated that he tried to kill himself before and he showed me an old scar on his left forearm. Patient stated that he has stigma which is worse than auditory hallucination according to the patient report. Patient denied any homicidal ideation. Critical care attestation.: If time is entered above; I have spent that time in minutes in the direct care of this critically ill patient, excluding procedure time. ED Disposition Clinical Impression: Suicidal ideation Disposition: [address] [place] [address] Is pt being admited?: No Condition: Stable Referrals: PRIMARY CARE, [Primary Care Provider] - 3-5 Days
[2021-06-24 15:00] LABS: Basophils % (Auto) 0.5 % (0.0-1.8); Eosinophils % (Auto) 0.3 % (0.0-4.3); Hematocrit 44.2 % (35.5-45.6); Hemoglobin 14.6 gm/dl (11.8-15.2); Lymphocytes # (Auto) 1.7 K/mm3 (1.2-5.4); Lymphocytes % (Auto) 26.3 % (13.4-35.0); Mean Corpuscular HGB Conc 33 % (32-34); Mean Corpuscular Volume 96 fl (84-94); Monocytes # (Auto) 0.6 K/mm3 (0.0-0.8); Monocytes % (Auto) 9.1 % (0.0-7.3); Platelet Count 283 K/mm3 (140-440); Red Blood Count 4.62 M/mm3 (3.65-5.03); Red Cell Distribution Width 13.2 % (13.2-15.2)
[2021-06-24 15:14] LABS: BUN/Creatinine Ratio 15; Blood Urea Nitrogen 17 mg/dL (9-20); Calcium 9.8 mg/dL (8.4-10.2); Hemolysis Index 9
[2021-06-24 19:30] LABS: Bilirubin,Urine NEG (Negative); Blood,Urine NEG (Negative); Color,Urine Yellow (Yellow); Mucus,Urine 3+ /HPF; Protein,Urine <15 mg/dL mg/dL (Negative)
[2021-06-24 19:57] LABS: Amphetamine Screen,Urine PRESUMPTIVE NEGATIVE; Benzodiazepines Screen,Urine PRESUMPTIVE NEGATIVE; Cannabinoid Screen,Urine PRESUMPTIVE POSITIVE; Cocaine Screen,Urine PRESUMPTIVE NEGATIVE; Methadone Screen,Urine PRESUMPTIVE NEGATIVE; Opiate Screen,Urine PRESUMPTIVE NEGATIVE
[2021-06-25 08:19] VITALS: BP 139/97
--- NOTE | 2021-06-25 10:00 | Consultation ---
History of Present Illness - Reason for Consult Consult date: 06/25/21 Reason for consult: agitation - History of Present Psychiatric Illness Per ER Note: Patient is 35 years old male with history of paranoid schizophrenia and posttraumatic stress disorder. Patient presented to the ER by police for mental health evaluation. Patient stated that he had an argument with someone and his mother called the police. Patient is very anxious with pressured speech and flight of ideas. Patient is very delusional. When asked about suicidal ideation patient stated that he tried to kill himself before and he showed me an old scar on his left forearm. Patient stated that he has stigma which is worse than auditory hallucination according to the patient report. Patient denied any homicidal ideation. 35y/o Ghanshyam Martin was evaluated today. During my evaluation the patient says he was brought to the hospital because his mother felt like he needed an eval uation. The patient appears to be delusional. He says "I was walking in the middle of the street because I was leaving the store." I asked the patient why was he walking in the middle of the street, he replies "because I was leaving the store. There are no sidewalks." When asking the patient about h allucinations, he denies, but then says he has "stigmas, where I think things are there but they are not." The patient's tone is aggressive at times and he's easily irritated. He denies SI/HI. He says "no, I'm not, where did that come from." The patient says "In the past a long time ago." He says "my mother follows me around everywhere. If I look in the refrigerator she's there." He says "she constantly has me arrested." The patient denies any psych history but states he's seen several people for "anger management." He denies being on any psychiatric medications. The patient also denies any illicit drug use, outside of THC. He says he smokes cigarets a ppd. PAST PSYCHIATRIC HISTORY: Diagnoses: Denies but documented "schizophrenia, PTSD" Suicide attempts or Self-harm behavior: yes Prior psychiatric hospitalizations: Denies Substance Abuse history: nicotine, thc Previous psychiatric medications tried: Denies Outpatient treatment: Denies PAST MEDICAL HISTORY: None reported or document Family Psychiatric History: None reported or documented SOCIAL HISTORY Marital Status: Single Living Arrangements: Lives with mother Employment Status: V[employer] Access to guns/weapons: Denies Education: [employer] History of Abuse:Unknown Legal History: Denies REVIEW OF SYSTEMS Constitutional: Negative for weight loss ENT: Negative for stridor Respiratory: Negative for cough or hemoptysis All other systems reviewed and are negative MENTAL STATUS EXAMINATION General Appearance and Behavior: Age appropriate, good hygiene, wearing appropriate clothes, easily irritated Cooperation: Cooperative Psychomotor Behavior: Psychomotor normal, guarded Mood: "OK' Affect and affective range: congruent with stated mood Thought Process: circumstantial Thought Content: Hallucinations Speech: Normal volume, Regular rate and rhythm, Suicidal Ideation: Denies Homicidal Ideation: Denies Hallucinations: Visual Delusions: Yes Impulse Control: Limited Insight and Judgment: poor Memory: Limited Attention: Distractible Orientation: alert and oriented Assessment and Plan (1) Schizophrenia Current Visit: Yes Status: Acute Treatment Plan [address] 125mg po BID Risperidone 0.5mg po BID Trazodone 50mg po qhs Geodon 20mg IM q4h prn agitation Nicotine Patch 21mg daily Sitter: defer to primary Medical: Per primary Disposition: Recommend acute psychiatric inpatient treatment Will follow. Thanks. Case staffed with Dr. Philippe. Medications and Allergies Allergies Allergy/AdvReac Type Severity Reaction Status Date / Time No Known Allergies Allergy Unverified 08/02/16 23:36 Home Medications Medication Instructions Recorded Confirmed Last Taken Type Amlodipine Besylate [Norvasc] 10 mg PO DAILY #30 tablet 09/28/20 Unknown Rx Docusate Sodium [Colace CAP] 100 mg PO BID #60 capsule 09/28/20 Unknown Rx hydrALAZINE [Apresoline TAB] 100 mg PO Q8HR #90 tab 09/28/20 Unknown Rx traMADoL [Ultram] 50 mg PO Q6HR PRN #14 tablet 09/28/20 Unknown Rx Mental Status Exam - Vital signs Last Vital Signs Temp 98.8 F 06/25/21 08:18 Pulse 90 06/25/21 08:18 Resp 20 06/25/21 08:18 BP 139/97 06/25/21 08:18 Pulse Ox 98 06/25/21 08:38 Results Result Diagrams: 06/24/21 14:29 06/24/21 14:29 Abnormal lab results 06/24/21 06/24/21 06/24/21 Range/Units 14:29 14:29 14:29 MCV 96 H (84-94) fl [place] % (Auto) 9.1 H (0.0-7.3) % Chloride 107.8 H (98-107) mmol/L Glucose 131 H (75-100) mg/dL Salicylates < 0.3 L (2.8-20.0) mg/dL Acetaminophen (10.0-30.0) ug/mL 06/24/21 Range/Units 14:29 MCV (84-94) fl [place] % (Auto) (0.0-7.3) % Chloride (98-107) mmol/L Glucose (75-100) mg/dL Salicylates (2.8-20.0) mg/dL Acetaminophen 5.0 L (10.0-30.0) ug/mL All other labs normal.
[2021-06-25] MEDS ORDERED: ZIPRASIDONE MESYLATE 20 MG VIAL IM PRN (10:09)
--- NOTE | 2021-06-25 11:32 | Emergency Department Report ---
Blank Doc - Documentation Documentation: 35-year-old male schizophrenic with history of PTSD currently on a 1013 for murray icidal ideation Objective no events overnight. Vital signs normal. No physical complaint Vital Signs - 24 hr 06/24/21 06/24/21 06/25/21 14:12 19:27 08:18 Temperature 98.3 F 98.7 F 98.8 F Pulse Rate 80 75 90 Respiratory 20 18 20 Rate Blood Pressure 147/82 147/96 139/97 [Left] O2 Sat by Pulse 96 97 98 Oximetry 06/25/21 08:38 Temperature Pulse Rate Respiratory Rate Blood Pressure [Left] O2 Sat by Pulse 98 Oximetry Assessment: Patient medically cleared suicidal on 1012, received mental health evaluate Plan: As per mental health continue 1012 and oral meds have been ordered by psych
[2021-06-25] MEDS: DIVALPROEX DR 125 MG TAB PO SCH (12:55)
[2021-06-25] MEDS: risperiDONE 0.25 MG TAB PO SCH (12:55)
[2021-06-25] MEDS: NICOTINE 21 MG/24 HR PATCH TD SCH (12:58)
[2021-06-25] MEDS ORDERED: traZODone 50 MG TAB PO SCH (22:00)
== END 2021-06-25 17:41 ==
LOC: EEVIPCON 13:36 → ED 13:36
DX: R45.851 Suicidal ideations (principal); F17.200 Nicotine dependence, unspecified, uncomplicated; I10 Essential (primary) hypertension; Z90.89 Acquired absence of other organs; Z79.899 Other long term (current) drug therapy
CPT/HCPCS: 36415; 80048; 80307; 80320; 81001; 85025; 99285; G0480